=== PATIENT | male | born 1945 | race Caucasian/White ===

== ENCOUNTER → 2019-07-08 08:50 | Outpatient (CLI) | payer MEDICARE ==
[2013-01-16 09:22] VITALS: BMI 28.0
== END | disposition home or self-care (01) ==
LOC: D.CT 08:50 → D.RT 10:00
PROVIDERS: ATTEND Internal Medicine Pulmonary Disease
DX: J44.9 Chronic obstructive pulmonary disease, unspecified (principal); J84.9 Interstitial pulmonary disease, unspecified

== ENCOUNTER → 2019-07-12 09:40 | Outpatient (CLI) | payer MEDICARE ==
[2013-01-16 09:22] VITALS: BMI 28.0
[2019-07-12 10:32] LABS: CALCIUM 9.3 mg/dL (8.5-10.1); CREATININE - SERUM 1.3 mg/dL (0.6-1.3)
== END | disposition home or self-care (01) ==
LOC: D.LAB 09:40
PROVIDERS: ATTEND Internal Medicine Pulmonary Disease
DX: I50.22 Chronic systolic (congestive) heart failure (principal)

== ENCOUNTER → 2020-05-25 08:28 | Outpatient (CLI) | payer OTHER ==
[2013-01-16 09:22] VITALS: BMI 28.0
== END | disposition home or self-care (01) ==
LOC: D.HCCECHO 08:28
PROVIDERS: ATTEND Internal Medicine Cardiovascular Disease
DX: I25.10 Atherosclerotic heart disease of native coronary artery without angina pectoris (principal)

== ENCOUNTER 2021-02-07 16:06 | Inpatient (IN) | payer OTHER ==
[~2021-02-07] VITALS: Ht 188 cm; Wt 75.8 kg
[2021-02-07 17:53] LABS: HEMATOCRIT 51.8 % (42.0-54.0); MCH 30.9 pg (26.0-34.0); MCHC 32.8 g/dL (31.0-37.0); MCV 94.2 fL (80.0-100.0); MEAN PLATELET VOLUME 11.1 fL (7.4-10.4); RBC 5.5 10x6/uL (4.20-6.10); RDW 14.6 % (11.5-14.5); WBC 14.1 10x3/uL (4.8-10.8)
[2021-02-07 18:00] LABS: APTT 33.8 SECONDS (22.8-39.4); INR 1.21 (0.85-1.17); PROTIME 14.2 SECONDS (11.6-15.0)
[2021-02-07 19:09] LABS: MAGNESIUM - SERUM 2.4 mg/dL (1.8-2.4)
[2021-02-07 19:45] VITALS: BP 94/58
[2021-02-07 20:08] LABS: SARS-CoV-2 ANTIGEN NEGATIVE- SARS-COV-2 (NEGATIVE)
--- NOTE | 2021-02-07 20:45 | NUR ---
PT TRANSPORTED TO ICU AT THIS TIME. VANCOMYCIN INFUSING DURING TRANSPORT AT 250ML/HR, APPROX 200 ALREADY INFUSED UPON TRANSPORT.
[2021-02-07 21:50] VITALS: BP 109/82
[2021-02-07 22:00] VITALS: BP 104/70; BP 109/82; BMI 21.5
[2021-02-07 23:00] VITALS: BP 110/47
[2021-02-08] VITALS (14 sets, daily range): BP systolic 88–116; BP diastolic 60–75; Ht 188 cm; Wt 75.8 kg
[2021-02-08 04:39] LABS: BASOPHILS 0 % (0-2); EOSINOPHILS 0.1 % (0-7); HEMATOCRIT 47.5 % (42.0-54.0); HEMOGLOBIN 15.3 g/dL (13.5-17.5); IMMATURE GRANULOCYTES 0.3 % (0-5); LYMPHOCYTE ABS# 0.71 10x3/uL (1.32-3.57); LYMPHOCYTES 7.6 % (15-50); MCH 30.2 pg (26.0-34.0); MCHC 32.2 g/dL (31.0-37.0); MCV 93.7 fL (80.0-100.0); MEAN PLATELET VOLUME 11.2 fL (7.4-10.4); MONOCYTES 1.2 % (2-11); NEUTROPHIL ABS# 8.54 10x3/uL (1.78-5.38); NEUTROPHILS 90.8 % (40-80); PLATELET COUNT 292 10x3/uL (130-400); RBC 5.07 10x6/uL (4.20-6.10); RDW 14.5 % (11.5-14.5)
[2021-02-08 04:54] LABS: WBC 9.4 10x3/uL (4.8-10.8)
[2021-02-08 05:00] LABS: ALBUMIN 2.9 g/dL (3.4-5.0); ANION GAP 13.8 mmol/L (8-16); BILIRUBIN - TOTAL 0.62 mg/dL (0.2-1.3); CREATININE - SERUM 1.3 mg/dL (0.6-1.3); MAGNESIUM - SERUM 2.2 mg/dL (1.8-2.4); POTASSIUM - SERUM 4.8 mmol/L (3.5-5.1); PROTEIN - SERUM 7.1 g/dL (6.4-8.2)
[2021-02-08 07:50] LABS: SARS-CoV-2 ANTIGEN NEGATIVE- SARS-COV-2 (NEGATIVE)
--- NOTE | 2021-02-08 10:48 | NUR ---
REPORT CALLED TO ILEANA GOMEZ. PT TRANSFERRED TO 2117 VIA W/C WITH ALL PT BELONGINGS. PT STABLE WITH EQUAL NON LABORED RR. PT DENIES ANY FURTHER QUESTIONS OR COMPLAINTS.
--- NOTE | 2021-02-08 11:15 | NUR ---
PT TO ROOM FROM ICU VIA WHEELCHAIR WITH FAMILY IN ROOM. 2LNC IN USE. NO COMPLAINTS AT PRESENT.
[2021-02-08 11:26] LABS: BILIRUBIN NEGATIVE (NEGATIVE); KETONE NEGATIVE (NEGATIVE); NITRITE NEGATIVE (NEGATIVE); UROBILINOGEN NORMAL mg/dL (< 2)
[2021-02-08] MEDS ORDERED: ENTRESTO 24 MG1 EACH PO (14:35)
[2021-02-08] MEDS ORDERED: COREG 3.1253.125 MG PO (14:35)
[2021-02-08] MEDS ORDERED: XANAX0.25 MG PO (14:36)
[2021-02-08] MEDS ORDERED: BAYER CHEWABLE81 MG PO (14:37)
[2021-02-09 05:33] VITALS: BP 91/61
[2021-02-09 06:16] LABS: ALBUMIN 2.9 g/dL (3.4-5.0); BILIRUBIN - TOTAL 0.35 mg/dL (0.2-1.3); CALCIUM 9.3 mg/dL (8.5-10.1); CARBON DIOXIDE 28.9 mmol/L (21.0-32.0); CREATININE - SERUM 1.1 mg/dL (0.6-1.3); MAGNESIUM - SERUM 2.3 mg/dL (1.8-2.4); PROTEIN - SERUM 6.8 g/dL (6.4-8.2)
[2021-02-09 06:17] LABS: POTASSIUM - SERUM 3.9 mmol/L (3.5-5.1)
[2021-02-09 06:26] LABS: BASOPHILS 0 % (0-2); EOSINOPHILS 0 % (0-7); HEMATOCRIT 45.5 % (42.0-54.0); HEMOGLOBIN 14.7 g/dL (13.5-17.5); IMMATURE GRANULOCYTES 0.3 % (0-5); LYMPHOCYTE ABS# 0.51 10x3/uL (1.32-3.57); LYMPHOCYTES 3.1 % (15-50); MCH 30.3 pg (26.0-34.0); MCHC 32.3 g/dL (31.0-37.0); MCV 93.8 fL (80.0-100.0); MEAN PLATELET VOLUME 11.6 fL (7.4-10.4); MONOCYTES 4.3 % (2-11); NEUTROPHIL ABS# 15.09 10x3/uL (1.78-5.38); NEUTROPHILS 92.3 % (40-80); PLATELET COUNT 294 10x3/uL (130-400); RBC 4.85 10x6/uL (4.20-6.10); RDW 14.4 % (11.5-14.5)
[2021-02-09 06:32] LABS: WBC 16.4 10x3/uL (4.8-10.8)
[2021-02-09 06:49] VITALS: BP 90/59
--- NOTE | 2021-02-09 08:40 | NUR ---
PT LEFT UNIT FOR PROCEDURE ACCOMPANIED BY HOSPITAL STAFF
[2021-02-09 11:08] VITALS: BP 97/65
--- NOTE | 2021-02-09 13:41 | NUR ---
Nutrition Reassessment/Follow-up: Transferred from ICU to floor. Normal gastrograffin & ST eval yesterday. NPO this AM for laryngoscopy, bronchoscopy, esophagoscopy. Diet: Cardiac PO intake: 75% lunch & 100% dinner yesterday Wt: 167# (02/08) Labs noted: Glu 132, Alb 2.9 Meds noted: Solumedrol, Protonix, LS @ KVO, electrolyte protocol Nutrition Goals: -Diet will advance to low sodium as tolerated within 24-48 hrs. -Meet est fluid needs without overload -Stable dry wt with increase to UBW -Glu wnl Nutrition Intervention: -Nutrition needs unchanged since initial assessment; no new wt available. -Resume cardiac diet when medically feasible. -Monitor Glu. -Need new wt. -RD follow-up: 02/13
--- NOTE | 2021-02-09 14:19 | NUR ---
I have reviewed this patient and I concur with the Shift Assessment completed by the Licensed Practical Nurse today this shift.
[2021-02-09 15:26] VITALS: BP 88/57
--- NOTE | 2021-02-09 19:30 | NUR ---
INITIAL ROUNDS AND ASSESSMENT COMPLETED. PT ALERT/ORIENTED AND RESTING IN BED. O2 @ 2L/NC WITH NONLABORED RESPIRATIONS. SR PER TELEMETRY. HAS PACEMAKER/DEFIBRILLATOR. PIV SALINE LOCKED IN LEFT A/C. DENIES PAIN OR DISCOMFORT. PLAN OF CARE REVIEWED.
[2021-02-09 20:41] VITALS: BP 91/60
--- NOTE | 2021-02-09 22:21 | NUR ---
PROVIDED PANKAJ BRYAN FOR PT. NO OTHER NEEDS.
[2021-02-10 00:19] VITALS: BP 104/64
--- NOTE | 2021-02-10 01:38 | NUR ---
IV SOLUMEDROL GIVEN, IV ABT UP AND INFUSING. HEPARIN 5000 UNITS GIVEN SC IN ABDOMEN. PT ALERT/ORIENTED. NO NEEDS VOICED. CALL LIGHT IN REACH.
[2021-02-10 03:48] VITALS: BP 106/57
[2021-02-10 06:10] LABS: BASOPHILS 0 % (0-2); EOSINOPHILS 0 % (0-7); HEMATOCRIT 44.8 % (42.0-54.0); HEMOGLOBIN 14.6 g/dL (13.5-17.5); IMMATURE GRANULOCYTES 0.2 % (0-5); LYMPHOCYTE ABS# 0.25 10x3/uL (1.32-3.57); LYMPHOCYTES 1.8 % (15-50); MCHC 32.6 g/dL (31.0-37.0); MCV 95.1 fL (80.0-100.0); MEAN PLATELET VOLUME 11.7 fL (7.4-10.4); MONOCYTES 4.1 % (2-11); NEUTROPHILS 93.9 % (40-80); PLATELET COUNT 256 10x3/uL (130-400); RBC 4.71 10x6/uL (4.20-6.10); RDW 14.8 % (11.5-14.5); WBC 14.3 10x3/uL (4.8-10.8)
[2021-02-10 06:19] LABS: ALBUMIN 2.8 g/dL (3.4-5.0); ANION GAP 10.2 mmol/L (8-16); BILIRUBIN - TOTAL 0.29 mg/dL (0.2-1.3); CALCIUM 9.1 mg/dL (8.5-10.1); CREATININE - SERUM 1.1 mg/dL (0.6-1.3); MAGNESIUM - SERUM 2.3 mg/dL (1.8-2.4); POTASSIUM - SERUM 4.2 mmol/L (3.5-5.1); PROTEIN - SERUM 6.3 g/dL (6.4-8.2)
--- NOTE | 2021-02-10 07:00 | NUR ---
RECEIVED REPORT. ASSUMED CARE OF PATIENT. CALL LIGHT WITHIN REACH. PATIENT RESTING WITH EYES OPEN, ATTENTION TOWARD TELEVISON. WHITE BOARD UPDATED, BEDSIDE SHIFT REPORT COMPLETE. NO DISTRESS.
--- NOTE | 2021-02-10 07:40 | NUR ---
COFFEE PROVIDED UPON REQUEST. NO DISTRESS.
[2021-02-10 07:47] VITALS: BP 93/60
[2021-02-10 11:20] VITALS: BP 101/43
[2021-02-10 15:24] VITALS: BP 92/62
--- NOTE | 2021-02-10 18:11 | NUR ---
20 GAUGE IV REMOVED FROM LEFT AC IV WILL NOT FLUSH AND FLUID LEAKING FROM IV SITE. CATHETER TIP INTACT. NO BLEEDING FROM SITE. 2X2 GAUZE APPLIED AND SECURED WITH TAPE. 22 GAUGE IV PLACED TO LEFT FOREARM X 1 STICK, GOOD BLOOD RETURN, EASY FLUSH. TAPED, DATED, AND SECURED. PATIENT TOLERATED IV PLACEMENT WELL. IV ABX INFUSING ORDERED AT THIS TIME. NO DISTRESS.
--- NOTE | 2021-02-10 20:00 | NUR ---
INITIAL ROUNDS AND ASSESSMENT COMPLETED. PT ALERT/ORIENTED AND RESTING IN BED. IV LR AT KVO INFUSING TO LFA. SCDS IN PLACED. O2 @ 2L/NC WITH NONLABORED RESPIRATIONS. CALL LIGHT IN REACH.
[2021-02-10 21:04] VITALS: BP 195/71
[2021-02-11 01:57] VITALS: BP 114/71
[2021-02-11 06:03] LABS: BASOPHILS 0 % (0-2); EOSINOPHILS 0 % (0-7); HEMATOCRIT 43.7 % (42.0-54.0); IMMATURE GRANULOCYTES 0.3 % (0-5); LYMPHOCYTE ABS# 0.22 10x3/uL (1.32-3.57); MCH 30.3 pg (26.0-34.0); MCV 94.6 fL (80.0-100.0); MEAN PLATELET VOLUME 11.4 fL (7.4-10.4); MONOCYTES 4.2 % (2-11); NEUTROPHIL ABS# 10.47 10x3/uL (1.78-5.38); NEUTROPHILS 93.5 % (40-80); PLATELET COUNT 241 10x3/uL (130-400); RBC 4.62 10x6/uL (4.20-6.10); RDW 14.6 % (11.5-14.5); WBC 11.2 10x3/uL (4.8-10.8)
[2021-02-11 06:10] VITALS: BP 111/75
[2021-02-11 06:31] LABS: ALBUMIN 2.8 g/dL (3.4-5.0); ALKALINE PHOSPHATASE 72 U/L (30-120); ALT (SGPT) 27 U/L (10-68); CALC OSMOLALITY 281 mosm/kg (275-300); CARBON DIOXIDE 28.4 mmol/L (21.0-32.0); CHLORIDE - SERUM 103 mmol/L (98-107); GLUCOSE 115 mg/dL (74-106); MAGNESIUM - SERUM 2.3 mg/dL (1.8-2.4); POTASSIUM - SERUM 4.3 mmol/L (3.5-5.1); PROTEIN - SERUM 6.2 g/dL (6.4-8.2); SODIUM 139 mmol/L (136-145); UREA NITROGEN 21 mg/dL (7-18); eGFR NON AFRICAN AMERICAN 78 mL/min (90-120)
--- NOTE | 2021-02-11 07:00 | NUR ---
RECIEVED REPORT. ASSUMED CARE OF PATIENT. CALL LIGHT WITHIN REACH. PATIENT LYING IN BED WITH ATTENTION TOWARD TELEVISION. RESP EVEN AND UNLABORED. WHITE BOARD UPDATED, BEDSIDE SHIFT REPORT COMPLETE. CLEANED OFF BEDSIDE TABLE OF FRUIT, PATIENT GETTING READY FOR AM MEAL. NO DISTRESS.
[2021-02-11 07:36] VITALS: BP 125/75
--- NOTE | 2021-02-11 10:24 | NUR ---
OOB AMBULATING WITH WALKER WITH PHYSICAL THERAPY AT THIS TIME. NO DISTRESS.
[2021-02-11 11:20] VITALS: BP 101/69
[2021-02-11 16:12] VITALS: BP 107/70
--- NOTE | 2021-02-11 16:52 | NUR ---
RESTING IN BED WITH EYES OPEN, NO DISTRESS. CALL LIGHT WITHIN REACH. ABLE TO CAT NAP THIS AFTERNOON AFTER NOT SLEEPING LAST PM. CALL LIGHT WITHIN REACH.
--- NOTE | 2021-02-11 20:19 | NUR ---
INITIAL ROUNDS AND ASSESSMENT COMPLETED. NO DISTRESS. RESTING IN BED. CALL LIGHT IN REACH.
--- NOTE | 2021-02-11 23:46 | NUR ---
BEDTIME IV ABT GIVEN. IVF INFUSING. UP AND DOWN TO BEDSIDE CHAIR. WITH ANY EXERTION HE WILL HAVE SHORT RUNS OF VTACH THAT STOP SOON HE HAS SETTLED BACK AND IS RESTING. DENIES PAIN, STATES IT DOES MAKE HIM MILDLY SHORT OF BREATH. CALL LIGHT IN REACH.
--- NOTE | 2021-02-12 05:49 | NUR ---
PT HAS RESTED THROUGH THE NIGHT WITH NO DISTRESS. ALL MEDICATIONS RECIEVED. IVF LR @ 30ML/HR INFUSING. O2 @ 2L/NC. CURRENTLY PORTABLE CXR BEING DONE. CALL LIGHT IN REACH.
--- NOTE | 2021-02-12 07:00 | NUR ---
RECIEVED REPORT. ASSUMED CARE OF PATIENT. PATIENT RESTING WELL IN BED WITH EYES OPEN. NO DISTRESS. WHITE BOARD UPDATED, BEDSIDE SHIFT REPORT COMPLETE. NO DISTRESS.
[2021-02-12 07:06] LABS: BASOPHILS 0 % (0-2); EOSINOPHILS 0 % (0-7); HEMATOCRIT 43.5 % (42.0-54.0); HEMOGLOBIN 14.1 g/dL (13.5-17.5); IMMATURE GRANULOCYTES 0.6 % (0-5); LYMPHOCYTES 2.8 % (15-50); MCH 30.9 pg (26.0-34.0); MCHC 32.4 g/dL (31.0-37.0); MCV 95.2 fL (80.0-100.0); MEAN PLATELET VOLUME 11.5 fL (7.4-10.4); MONOCYTES 6.8 % (2-11); NEUTROPHIL ABS# 9.62 10x3/uL (1.78-5.38); NEUTROPHILS 89.8 % (40-80); PLATELET COUNT 230 10x3/uL (130-400); RBC 4.57 10x6/uL (4.20-6.10); RDW 14.9 % (11.5-14.5); WBC 10.7 10x3/uL (4.8-10.8)
[2021-02-12 07:19] LABS: ALBUMIN 2.7 g/dL (3.4-5.0); ANION GAP 8.8 mmol/L (8-16); BILIRUBIN - TOTAL 0.32 mg/dL (0.2-1.3); CALCIUM 9.1 mg/dL (8.5-10.1); CARBON DIOXIDE 31.5 mmol/L (21.0-32.0); CREATININE - SERUM 1.1 mg/dL (0.6-1.3); MAGNESIUM - SERUM 2.3 mg/dL (1.8-2.4); POTASSIUM - SERUM 4.3 mmol/L (3.5-5.1)
--- NOTE | 2021-02-12 10:04 | CN ---
PATIENT NAME:TESSIE STOLL MEDICAL RECORD: [id number] : 49 LOCATION:D. D.2118 ADMIT DATE: 02/07/21 ACCOUNT: [id number] CONSULTING PHYSICIAN: LIBRA ROBERTS MD REFERRING PHYSICIAN: ROLF TAFOYA MD DATE OF CONSULTATION: 02/09/2021 HISTORY OF PRESENT ILLNESS: Mr. Stoll is a 75-year-old male recently hospitalized with shortness of breath. He was seen by Dr. Mcguire, Cardiothoracic Surgery, and felt like he needed endoscopy for evaluation. He has a history of congestive heart failure, pulmonary disease. He came in with shortness of breath, fatigue. This has been developing over the past 3 weeks. He has lost his appetite. He feels short of breath, just not feeling well. Reportedly, has not had any cough, has not been sick. No hemoptysis. No voice change. No dysphagia. He has been eating less based on no appetite. Has not been vomiting or retching. No injury. Nothing else remarkable in his history. He was found to have a pneumomediastinum. He had a Gastrografin swallow, which was negative. He had a CT of the chest, which shows air mainly in the mediastinum, but no lesions identified. His white count is 16,000, but he has not had any fever. He has not had any GI bleed. He is not having any chest pain or other symptoms really. Dr. Mcguire consults may want to me to do triple endoscopy, laryngoscopy, bronchoscopy, esophagoscopy. PHYSICAL EXAMINATION: GENERAL: He is healthy appearing. He is supine in the hospital bed, but he is a good historian. Perfectly normal voice. Good historian and no distress. HEENT: His face normal, symmetric, no lesions. Eyes, sclerae and conjunctivae are normal. Ears are normal. The nose, no mass, polyps, or drainage. Oral cavity, oropharynx is normal. He does not have any trismus. NECK: No masses. No adenopathy. He has got a relatively long, thin neck, easy to examine. No supraclavicular adenopathy. No tenderness. All the landmarks of the larynx are normal. No subcutaneous air. Crepitus is palpable. DIAGNOSTIC DATA: CT of the chest, I reviewed with the radiologist. Trachea and esophagus look normal. There is air, some adenopathy in mediastinum. Apparently, that is not new according to the garage worker. IMPRESSION: Pneumomediastinum with progressive shortness of breath. No obvious etiology. PLAN: Laryngoscopy, bronchoscopy, esophagoscopy, possible biopsies for evaluation. Try to do that with as much spontaneous ventilation and no positive pressure ventilation as we can and evaluate him. TRANSINT:[id number] Voice Confirmation ID: [id number] DOCUMENT ID: [id number] LIBRA ROBERTS MD at 1004 CC: [id number] DICTATION DATE: 02/09/21 0804 ONLINE MARKETING ANALYST: 02/09/21 1020 ADM IN [facility] [address] [id number]
--- NOTE | 2021-02-12 10:04 | OP ---
PATIENT NAME: TESSIE STOLL MEDICAL RECORD: [id number] :49 LOCATION:D. D.2118 ADMISSION DATE:02/07/21 SURGEON: TAE HADLEY MD DATE OF OPERATION: 02/09/2021 PREOPERATIVE DIAGNOSIS: Pneumomediastinum. POSTOPERATIVE DIAGNOSIS: Pneumomediastinum. PROCEDURE: Direct laryngoscopy, rigid esophagoscopy, rigid flexible bronchoscopy. SURGEON: Tae Hadley MD ANESTHESIA: General orotracheal. BLOOD LOSS: Zero. SPECIMENS: Cytology from bronchial washings. COMPLICATIONS: None. DISPOSITION: Recovery, stable. FINDINGS: Laryngoscopy, bronchoscopy and esophagoscopy were all negative. DESCRIPTION OF PROCEDURE: The patient was brought to the operating room, placed in supine position, sedated, intubated with a 6 ET tube by anesthesia. He was able to be spontaneously ventilating the entire time without positive pressure ventilation. A 6 ET tube was taped in the left side of the mouth. The table was turned 90 degrees and he was examined. The neck was again palpated carefully. A thin, easy to examine neck. No masses, no adenopathy. Laryngeal framework. All normal to palpation. All landmarks were normal. No palpable crepitance. Using headlight, mouth was opened, oral cavity and oropharynx were examined. All normal. A plastic upper tooth guard was used to protect his teeth. He did not have posterior teeth. Good neck flexibility. A Kleinsasser J laryngoscope was used to examine the hypopharynx, the vallecula, base of tongue, lateral pharyngeal agee, piriform postcricoid area and the larynx. Posterior pharyngeal wall were all perfectly normal. It was thin, easy to examine. There were no masses, inflammation, no friable areas. Everything looked perfectly normal. Then, the laryngoscope was removed. Then, a 30 cm cervical esophagoscope was inserted easily. The esophageal inlet was normal. Passed this down to the mid esophagus easily, perfectly normal suction, little bit of secretions, but again no masses, no mucosal lesions. No true evidence of any injury or ecchymosis or any changes anywhere. The 30 cm esophagoscope was removed and then full length esophagoscope was inserted again easily to the mid distal esophagus, passed that down easily to about 42-45 cm at the incisors near the gastroesophageal junction. No abnormalities were seen. Did not pass into the stomach. I then backed out slowly. The entire esophagus appeared normal. Once the esophagoscope was removed, then the 7-2 rigid bronchoscope was used. The cuff was let down on the ET tube. Rigid bronchoscope was inserted, easily passed through the cords, examine the cords, postcricoid area, the posterior glottic area and then the subglottis and undersurface of the cords, anterior commissure carefully inspected. No abnormalities, erythema, lesions, or evidence of injury at all. Passed this through the entire trachea, down to the OPERATIVE REPORT [id number] TESSIE STOLL lindy, right and left main stem bronchi were visualized, again everything perfectly normal. No secretions. Nothing friable. Nothing to suction. Looked completely clean and normal. The rigid bronchoscope was removed. Then, he was intubated with a 8 ET tube. Cuff was inflated and a flexible bronchoscopy was performed. This was passed down through the trachea. Again, it was carefully examined. The agee, right and left main stem and bronchial tree were inspected bilaterally. No lesions, masses, inflammation, granulation or secretions at all. Everything looked perfectly normal. At the completion of the examination then both the right and left side were irrigated with saline. This was suctioned up for bronchial washing specimen even though no lesions were seen and then backed out the ET tube and then carefully pulled out the bronchoscope so I could examine the subglottic area and upper trachea carefully with the scope, better angles and magnification, and the rigid scope everything completely clean. He was repositioned. The plastic tooth guard was removed, completely negative findings. Anesthesiologist was able to let him just continue to breathe spontaneously until he awoke and took him to the recovery room. TRANSINT:[id number] Voice Confirmation ID: [id number] DOCUMENT ID: [id number] TAE HADLEY MD at 1004 CC: [id number] DICTATION DATE: 02/09/21 1057 WASHCOAT WIPER: 02/09/21 1320 ADM IN [id number] [place] [address]
--- NOTE | 2021-02-12 10:43 | NUR ---
GT BELT, O2 AT 2, PATIENT MIN ASST TO GET UP TO BEDSIDE AND TO STAND. PATIENT WALKED IN [place] 250 FEET USING WALKER WITH MIN-CGA.
--- NOTE | 2021-02-12 14:55 | MORECARE ---
CASE MANAGEMENT DISCHARGE SUMMARY PATIENT: TESSIE TSOLL UNIT: [id number] ADM DATE: 02/07/21 AGE: 75 : 47 SEX: M ROOM/BED: D.2118 AUTHOR: BRANNON US PHYSICIAN: REFERRING PHYSICIAN: ROLF TAFOYA MD DATE OF SERVICE: 02/12/21 Case Management Discharge Planning Summary COMMENTS ENTERED DATE: 02/11/21 18:14 CT COMMENT TYPE: Discharge Planning REVIEWER: Ba Hardy met with patient to complete DC plan and to evaluate needs. Patient lives independently with family and lists his daughter, Tiffanie Stoll, , as his person to notify. Patient stated that his home is safe and has electricity and running water. Patient stated that he has no problems paying for medications and he fills his medications at [facility] in Pharmacy in [place]. Patient stated that his primary care physician is an DYE BOX OPERATOR in [place], Kenia Campa (cannot locate DYE BOX OPERATOR via internet). At discharge, the patient plans to return home and feels this is a safe discharge. CM discussed availability of home health, rehab services, and medical equipment. Patient declined HHS, SNF, IPR, and DME. Patient stated that he has oxygen through [facility]. CM encouraged patient to consider the benefits of strengthening before going home. Patient again declined IPR. CM encouraged patient to follow up with his PCP to coordinate HHS or IPR should he change his mind once he is home. Patient voiced no other needs at this time and is satisfied with DC plan. Transportation provider at discharge will be with his daughter, Tiffanie. CM will continue to follow and will assist as needed with dc plans/needs. DCP REVIEW SUMMARY ANTICIPATED D/C DATE: EXPECTED LOS : CASE STATUS: DCP Initiated INITIAL REVIEW: 02/07/2021 INITIAL REVIEWER: Ba Flower FINAL DISCHARGE DISPOSITION: : FINAL REVIEWER: FINAL REVIEW DATE: DCP Focus Questions & Answers DCP Evaluation QUESTION: ANSWER Patient and/or caregiver agree upon recommended discharge plan? : Yes Family / Caregiver's ability to cope with chronic illness: : a. Adequate (ability to meet patient's medical needs, ensures patient attends medical appts.) Patient's current cognitive status: : *Oriented to person, place, situation, time and present Patient's ability to cope with chronic illness : d. No chronic illness Patient gives permission to discuss discharge plans with: (name, relationship and number) : daughter, Tiffanie Stoll, Does the patient have the ability to pay for or attain post discharge needs / services? : Yes Functional screen assessment: : Basic needs can adequately be met by self Family / Caregiver's ability to cope with chronic illness: : a. Adequate (ability to meet patient's medical needs, ensures patient attends medical appts.) Physical Status: : Independent with ADL's Equipment needed for post hospitalization: : None Is there a likelihood that the patient will require additional services to return to the preadmission environment? : No Living Arrangements: : Home with Extended Family Patient with capacity for self-care or can be cared for in same environment as prior to hospitalization? : Yes Baseline cognitive status: : *Oriented to person, place, situation, time and present Physical environment modification needed / anticipated for discharge: : No Medication Management: : Patient states can read and understand medication labels Medication Management: : Patient states can afford medications Pharmacy name(s): : [facility] in [facility] Does Patient have transportation to get home and to follow-up medical appointments when discharged from the hospital? : Yes Would patient like to participate in any Care Coordination programs (if applicable): : Not applicable Does the patient have electricity at home? : Yes Does the patient have running water in their house? : Yes Equipment in use: : Other Other Equipment comments: : OXYGEN Equipment agency name and contact information: : [facility] screen: : No mental health history DCP Re-evaluation QUESTION: ANSWER Would patient like to participate in any Care Coordination programs (if applicable): : Not applicable PATIENT: TESSIE STOLL ENCOUNTER: [id number] MEDICAL RECORD#: [id number] ADMISSION DATE: 02/07/2021 DISCHARGE DATE: ATTENDING MD: MICHELET TAFOYA : AGE: 75 MARITAL STATUS: W DC PLAN ID: [id number] FACILITY: [facility] PRINTED ON: 02/12/21 14:55 CT All edits/amendments must be made on the electronic document DICTATION DATE: 02/12/211454 OXYGEN PLANT OPERATOR: STEVENSON 02/12/211454 RPT#: [id number] DC DATE: STATUS: ADM IN [facility] [address] [place] [address] END OF REPORT
--- NOTE | 2021-02-12 20:12 | NUR ---
RECIEVED LAYIG IN BED WITH EYES CLOSED. EASILY AROUSED WITH VERBAL STIMULI. O2 @ 2 LITERS PER N/C. IV TO LT FA WITH LR @ 30CC/HR. TELEMETRY IN PLACE. DENIES ANY NEEDS AT THIS TIME.
[2021-02-13 06:11] LABS: BASOPHILS 0.2 % (0-2); EOSINOPHILS 0 % (0-7); HEMATOCRIT 44.3 % (42.0-54.0); HEMOGLOBIN 14.1 g/dL (13.5-17.5); IMMATURE GRANULOCYTES 0.8 % (0-5); LYMPHOCYTE ABS# 0.44 10x3/uL (1.32-3.57); LYMPHOCYTES 3.3 % (15-50); MCH 30.6 pg (26.0-34.0); MCHC 31.8 g/dL (31.0-37.0); MCV 96.1 fL (80.0-100.0); MEAN PLATELET VOLUME 11.2 fL (7.4-10.4); MONOCYTES 8.4 % (2-11); NEUTROPHIL ABS# 11.47 10x3/uL (1.78-5.38); NEUTROPHILS 87.3 % (40-80); PLATELET COUNT 246 10x3/uL (130-400); RBC 4.61 10x6/uL (4.20-6.10); RDW 14.9 % (11.5-14.5); WBC 13.1 10x3/uL (4.8-10.8)
[2021-02-13 06:39] LABS: ALBUMIN 2.7 g/dL (3.4-5.0); ANION GAP 8.5 mmol/L (8-16); BILIRUBIN - TOTAL 0.31 mg/dL (0.2-1.3); CALCIUM 9.2 mg/dL (8.5-10.1); CARBON DIOXIDE 30.9 mmol/L (21.0-32.0); CREATININE - SERUM 1.2 mg/dL (0.6-1.3); POTASSIUM - SERUM 4.4 mmol/L (3.5-5.1); PROTEIN - SERUM 6.1 g/dL (6.4-8.2)
--- NOTE | 2021-02-13 07:20 | NUR ---
RECIEVE REPORT. RESTING IN BED WITH EYES CLOSED. NO SIGNS OF DISTRESS. CONTINUE PLAN OF CARE AND SAFETY PRECAUTIONS.
--- NOTE | 2021-02-13 08:15 | MORECARE ---
CASE MANAGEMENT DISCHARGE SUMMARY PATIENT: TESSIE STOLL UNIT: [id number] ADM DATE: 02/07/21 AGE: 75 : 47 SEX: M ROOM/BED: D.2118 AUTHOR: BRANNON US PHYSICIAN: REFERRING PHYSICIAN: ROLF TAFOYA MD DATE OF SERVICE: 02/13/21 Case Management Discharge Planning Summary COMMENTS ENTERED DATE: 02/11/21 18:14 CT COMMENT TYPE: Discharge Planning REVIEWER: Ba Hardy met with patient to complete DC plan and to evaluate needs. Patient lives independently with family and lists his daughter, Tiffanie Stoll, , as his person to notify. Patient stated that his home is safe and has electricity and running water. Patient stated that he has no problems paying for medications and he fills his medications at [facility] in Pharmacy in [place]. Patient stated that his primary care physician is an FLEXOGRAPHIC PRINTING MACHINIST in [place], Kenia Campa (cannot locate FLEXOGRAPHIC PRINTING MACHINIST via internet). At discharge, the patient plans to return home and feels this is a safe discharge. CM discussed availability of home health, rehab services, and medical equipment. Patient declined HHS, SNF, IPR, and DME. Patient stated that he has oxygen through [facility]. CM encouraged patient to consider the benefits of strengthening before going home. Patient again declined IPR. CM encouraged patient to follow up with his PCP to coordinate HHS or IPR should he change his mind once he is home. Patient voiced no other needs at this time and is satisfied with DC plan. Transportation provider at discharge will be with his daughter, Tiffanie. CM will continue to follow and will assist as needed with dc plans/needs. DCP REVIEW SUMMARY ANTICIPATED D/C DATE: EXPECTED LOS : CASE STATUS: DCP Initiated INITIAL REVIEW: 02/07/2021 INITIAL REVIEWER: Ba Flower FINAL DISCHARGE DISPOSITION: : FINAL REVIEWER: FINAL REVIEW DATE: DCP Focus Questions & Answers DCP Evaluation QUESTION: ANSWER Patient and/or caregiver agree upon recommended discharge plan? : Yes Family / Caregiver's ability to cope with chronic illness: : a. Adequate (ability to meet patient's medical needs, ensures patient attends medical appts.) Patient's current cognitive status: : *Oriented to person, place, situation, time and present Patient's ability to cope with chronic illness : d. No chronic illness Patient gives permission to discuss discharge plans with: (name, relationship and number) : daughter, Tiffanie Stoll, Does the patient have the ability to pay for or attain post discharge needs / services? : Yes Functional screen assessment: : Basic needs can adequately be met by self Family / Caregiver's ability to cope with chronic illness: : a. Adequate (ability to meet patient's medical needs, ensures patient attends medical appts.) Physical Status: : Independent with ADL's Equipment needed for post hospitalization: : None Is there a likelihood that the patient will require additional services to return to the preadmission environment? : No Living Arrangements: : Home with Extended Family Patient with capacity for self-care or can be cared for in same environment as prior to hospitalization? : Yes Baseline cognitive status: : *Oriented to person, place, situation, time and present Physical environment modification needed / anticipated for discharge: : No Medication Management: : Patient states can read and understand medication labels Medication Management: : Patient states can afford medications Pharmacy name(s): : [facility] in [facility] Does Patient have transportation to get home and to follow-up medical appointments when discharged from the hospital? : Yes Would patient like to participate in any Care Coordination programs (if applicable): : Not applicable Does the patient have electricity at home? : Yes Does the patient have running water in their house? : Yes Equipment in use: : Other Other Equipment comments: : OXYGEN Equipment agency name and contact information: : [facility] screen: : No mental health history DCP Re-evaluation QUESTION: ANSWER Would patient like to participate in any Care Coordination programs (if applicable): : Not applicable PATIENT: TESSIE STOLL ENCOUNTER: [id number] MEDICAL RECORD#: [id number] ADMISSION DATE: 02/07/2021 DISCHARGE DATE: ATTENDING MD: MICHELET TAFOYA : AGE: 75 MARITAL STATUS: W DC PLAN ID: [id number] FACILITY: [facility] PRINTED ON: 02/13/21 8:14 CT All edits/amendments must be made on the electronic document DICTATION DATE: 02/13/21813 FURNITURE DELIVERY DRIVER: STEVENSON 02/13/21813 RPT#: [id number] DC DATE: STATUS: ADM IN [facility] [address] [place] [address] END OF REPORT
[2021-02-13 11:37] VITALS: BP 117/73
[2021-02-13] MEDS ORDERED: PROTONIX40 MG PO (11:40)
[2021-02-13] MEDS ORDERED: IPRAT-ALBUT 0.5-3 ML INH ×2 (11:43)
[2021-02-13] MEDS ORDERED: PULMICORT0.5 MG/21 INH (11:44)
[2021-02-13] MEDS ORDERED: PREDNISONE10 MG PO (11:44)
--- NOTE | 2021-02-13 12:56 | NUR ---
Nutrition Follow-up: Eating well. Denies N/V/C/D, chewing/swallowing difficulties. Diet: Cardiac PO intake: 100% x last 4 meals No new wt; last wt: 167# (02/08) Last BM: 02/13 Labs noted: Alb 2.7 Meds noted: Prednisone, Protonix, LR @ KVO, electrolyte protocol -RD will follow up within 7 days if pt still admitted.
--- NOTE | 2021-02-13 14:00 | NUR ---
REFUSED PT AWAITING DC
--- NOTE | 2021-02-13 15:30 | NUR ---
ALERT AND ORIENTED X4. DC LT FA IV TIP INTACT. DISCHARGE INSTRUCTIONS GIVEN VERBALLY AND WRITTEN. WAITING FOR RIDE. DISCHARGE PAPERS SIGNED ON CHART.
--- NOTE | 2021-02-13 17:07 | NUR ---
RIDE ARRIVES. ESCORT OUT VIA WHEELCHAIR. PORTABLE OXYGEN IN USE. REMAINS FREE FROM INJURY.
== END 2021-02-13 17:08 | disposition home or self-care (01) | DRG 199 ==
LOC: D.ER 16:06 → D.ICU 17:15 → D.M2 17:15 → D.ICU 21:15 → D.M2 02-08 10:49
PROVIDERS: Emergency Medicine; Otolaryngology; ADMIT Family Medicine; ATTEND Family Medicine
PROC: 0B938ZZ Drainage of Right Main Bronchus, Via Natural or Artificial Opening Endoscopic (ICD-10-PCS; 2021-02-09)
PROC: 0CJS8ZZ Inspection of Larynx, Via Natural or Artificial Opening Endoscopic (ICD-10-PCS; principal; 2021-02-09 08:00)
PROC: 0DJ08ZZ Inspection of Upper Intestinal Tract, Via Natural or Artificial Opening Endoscopic (ICD-10-PCS; 2021-02-09 08:00)
PROC: 0B978ZZ Drainage of Left Main Bronchus, Via Natural or Artificial Opening Endoscopic (ICD-10-PCS; 2021-02-09 08:00)
DX: J98.2 Interstitial emphysema (principal); I21.A1 Myocardial infarction type 2; J96.11 Chronic respiratory failure with hypoxia; E87.1 Hypo-osmolality and hyponatremia; I50.22 Chronic systolic (congestive) heart failure; I13.0 Hypertensive heart and chronic kidney disease with heart failure and stage 1 through stage 4 chronic kidney disease, or unspecified chronic kidney disease; J44.9 Chronic obstructive pulmonary disease, unspecified; E78.5 Hyperlipidemia, unspecified; I25.5 Ischemic cardiomyopathy; N18.9 Chronic kidney disease, unspecified; Z95.0 Presence of cardiac pacemaker; Z87.891 Personal history of nicotine dependence

== ENCOUNTER 2021-02-14 04:33 | Inpatient (IN) | payer OTHER ==
[2021-02-14] VITALS (59 sets, daily range): BP systolic 74–105; BP diastolic 46–75; BMI 24.5
[~2021-02-14] VITALS: Ht 188 cm; Wt 78.3 kg
[~2021-02-14 04:33] MED LIST: BAYER CHEWABLE81 MG PO; COREG 3.1253.125 MG PO; ENTRESTO 24 MG1 EACH PO; IPRAT-ALBUT 0.5-3 ML INH; PREDNISONE10 MG PO; PROTONIX40 MG PO; PULMICORT0.5 MG/21 INH; XANAX0.25 MG PO
[2021-02-14 05:43] LABS: HEMATOCRIT 51.1 % (42.0-54.0); HEMOGLOBIN 16.7 g/dL (13.5-17.5); MCH 31.4 pg (26.0-34.0); MCHC 32.7 g/dL (31.0-37.0); MCV 96.1 fL (80.0-100.0); MEAN PLATELET VOLUME 10.6 fL (7.4-10.4); PLATELET COUNT 244 10x3/uL (130-400); RBC 5.32 10x6/uL (4.20-6.10); RDW 15.3 % (11.5-14.5)
[2021-02-14 05:46] LABS: WBC 56.2 10x3/uL (4.8-10.8)
[2021-02-14 06:00] LABS: CALCIUM 8.9 mg/dL (8.5-10.1); CARBON DIOXIDE 26.4 mmol/L (21.0-32.0); CHLORIDE - SERUM 106 mmol/L (98-107); GLUCOSE 113 mg/dL (74-106); POTASSIUM - SERUM 4.3 mmol/L (3.5-5.1); SODIUM 142 mmol/L (136-145); eGFR NON AFRICAN AMERICAN 42 mL/min (90-120)
[2021-02-14 06:01] LABS: APTT 28.4 SECONDS (22.8-39.4); INR 1.24 (0.85-1.17); PROTIME 14.5 SECONDS (11.6-15.0)
[2021-02-14 06:04] LABS: CALC OSMOLALITY 291 mosm/kg (275-300); CREATININE - SERUM 1.7 mg/dL (0.6-1.3); UREA NITROGEN 34 mg/dL (7-18)
[2021-02-14 06:11] LABS: EOSINOPHILS 1 % (0-7); LYMPHOCYTES 1 % (15-50); MONOCYTES 16 % (2-11); NEUTROPHILS 81 % (40-80); PLATELET ESTIMATE NORMAL
[2021-02-14 06:22] LABS: ALBUMIN 2.7 g/dL (3.4-5.0); ALKALINE PHOSPHATASE 90 U/L (30-120); LIPASE 134 U/L (73-393); MAGNESIUM - SERUM 2.3 mg/dL (1.8-2.4); PRO BNP 24220 pg/mL (0-125); PROTEIN - SERUM 6.1 g/dL (6.4-8.2)
[2021-02-14 06:27] LABS: ALT (SGPT) 126 U/L (10-68); C-REACTIVE PROTEIN < 0.2 mg/dL (0.0-0.9)
[2021-02-14 06:36] LABS: D-DIMER-QUANTITATIVE 17.58 ug/mLFEU (0.20-0.54)
[2021-02-14 08:51] LABS: BILIRUBIN NEGATIVE (NEGATIVE); KETONE NEGATIVE (NEGATIVE); NITRITE NEGATIVE (NEGATIVE); UROBILINOGEN NORMAL mg/dL (< 2)
[2021-02-14 08:54] LABS: WHITE CELLS - URINE 0-5 HPF (0-1)
[2021-02-14 08:55] LABS: BACTERIA FEW HPF (NONE SEEN); GRANULAR CAST 0-5 LPF (NONE SEEN); SQUAMOUS EPITHELIAL 0-5 HPF (0-4)
[2021-02-14 08:59] LABS: UDS - AMPHET NEGATIVE QUAL (NEGATIVE); UDS - BARB NEGATIVE QUAL (NEGATIVE); UDS - BENZO NEGATIVE QUAL (NEGATIVE); UDS - COCAINE NEGATIVE QUAL (NEGATIVE); UDS - OPIATE NEGATIVE QUAL (NEGATIVE); UDS - PCP NEGATIVE QUAL (NEGATIVE); UDS - THC NEGATIVE QUAL (NEGATIVE)
[2021-02-15] VITALS (44 sets, daily range): BP systolic 85–117; BP diastolic 50–73; Ht 188 cm; Wt 78.3 kg
--- NOTE | 2021-02-15 00:58 | NUR ---
RT PLACED ON BIPAP PER RT 18/04 35%. RESTING WELL. LESS TACHYCARDIA ON 7MKM OF DOBUTAMINE FROM 10. WILL CONT TO MONITOR.
--- NOTE | 2021-02-15 02:59 | NUR ---
PT REQUESTING TO BE OFF BIPAP FOR A BIT. PLACED ON STANDBY AND RETURNED TO 5L OH.
[2021-02-15 04:40] LABS: BASOPHILS 0.1 % (0-2); EOSINOPHILS 0 % (0-7); IMMATURE GRANULOCYTES 1.4 % (0-5); LYMPHOCYTE ABS# 0.56 10x3/uL (1.32-3.57); LYMPHOCYTES 3.1 % (15-50); MCH 30.7 pg (26.0-34.0); MCHC 32.4 g/dL (31.0-37.0); MCV 94.7 fL (80.0-100.0); MONOCYTES 8.3 % (2-11); NEUTROPHIL ABS# 15.56 10x3/uL (1.78-5.38); NEUTROPHILS 87.1 % (40-80); RDW 15.3 % (11.5-14.5)
[2021-02-15 04:44] LABS: HEMATOCRIT 40.7 % (42.0-54.0); HEMOGLOBIN 13.2 g/dL (13.5-17.5); PLATELET COUNT 146 10x3/uL (130-400); WBC 17.9 10x3/uL (4.8-10.8)
[2021-02-15 05:27] LABS: ALBUMIN 2.3 g/dL (3.4-5.0); ANION GAP 9.1 mmol/L (8-16); BILIRUBIN - TOTAL 0.45 mg/dL (0.2-1.3); CALCIUM 8.3 mg/dL (8.5-10.1); CARBON DIOXIDE 30.9 mmol/L (21.0-32.0); CREATININE - SERUM 1.7 mg/dL (0.6-1.3); MAGNESIUM - SERUM 2.3 mg/dL (1.8-2.4); PHOSPHOROUS 4.9 mg/dL (2.5-4.9); PROTEIN - SERUM 5.3 g/dL (6.4-8.2); VANCOMYCIN - RANDOM 7.9 ug/mL (10.0-20.0)
[2021-02-15 05:36] LABS: TROPONIN-I 1.186 ng/mL (0.000-0.060)
[2021-02-16] VITALS (21 sets, daily range): BP systolic 98–131; BP diastolic 59–89
[2021-02-16 05:00] LABS: BASOPHILS 0.2 % (0-2); EOSINOPHILS 0.1 % (0-7); HEMOGLOBIN 13.5 g/dL (13.5-17.5); LYMPHOCYTE ABS# 1.13 10x3/uL (1.32-3.57); LYMPHOCYTES 5.7 % (15-50); MCH 30.4 pg (26.0-34.0); MCHC 31.4 g/dL (31.0-37.0); MEAN PLATELET VOLUME 11.6 fL (7.4-10.4); MONOCYTES 6.7 % (2-11); NEUTROPHIL ABS# 16.85 10x3/uL (1.78-5.38); NEUTROPHILS 85.3 % (40-80); RBC 4.44 10x6/uL (4.20-6.10); RDW 15.1 % (11.5-14.5); WBC 19.7 10x3/uL (4.8-10.8)
[2021-02-16 05:21] LABS: MCV 96.8 fL (80.0-100.0); PLATELET COUNT 178 10x3/uL (130-400)
[2021-02-16 05:37] LABS: ALBUMIN 2.3 g/dL (3.4-5.0); ANION GAP 9.6 mmol/L (8-16); BILIRUBIN - TOTAL 0.31 mg/dL (0.2-1.3); CALCIUM 8.4 mg/dL (8.5-10.1); CARBON DIOXIDE 34.5 mmol/L (21.0-32.0); CREATININE - SERUM 2.1 mg/dL (0.6-1.3); MAGNESIUM - SERUM 2.3 mg/dL (1.8-2.4); PHOSPHOROUS 4.9 mg/dL (2.5-4.9); POTASSIUM - SERUM 4.1 mmol/L (3.5-5.1); PROTEIN - SERUM 5.5 g/dL (6.4-8.2); VANCOMYCIN - RANDOM 16.2 ug/mL (10.0-20.0)
--- NOTE | 2021-02-16 07:00 | NUR ---
REPORT RECEIVED. ASSESSMENT COMPLETE PER FLOW SHEET. VSS. DNEIES NEEDS.
--- NOTE | 2021-02-16 08:45 | NUR ---
family at bedside given update no new changes
--- NOTE | 2021-02-16 09:15 | NUR ---
dr chau at bedside new orders received. will adm.
--- NOTE | 2021-02-16 10:15 | NUR ---
HENRY GONZALES WITH CARDIOLOGY AT BEDSIDE GIVEN UPDATE REGAURDING AMNIO, MEDICATIONS CHANGES. WILL ADM.
--- NOTE | 2021-02-16 11:00 | NUR ---
REASSESSMENT COMPLETE PER FLOW SHEET. VSS. NO NEW CHANGES. WILL CONTINUE TOMONITOR
--- NOTE | 2021-02-16 15:00 | NUR ---
REASSESSMENT COMPLETE PER FLOW SHEET. VSS. PT RESTING COMFORTABLY UP IN CHIAR DENIES NEEDS.
[2021-02-17 03:00] VITALS: BP 133/71
--- NOTE | 2021-02-17 07:00 | NUR ---
AWAKE AND ALERT SKIN WARM AND DRY. SALINE LOCK IV'S BOTH ARMS WITHOUT REDNESS OR SWELLING. MONITOR SR WITH PVC'S. NO DISTRESS. OXYGEN AT 2 LITERS PER NC. USING URINAL. DENIES PAIN.
[2021-02-17 07:21] LABS: HEMATOCRIT 46.7 % (42.0-54.0); HEMOGLOBIN 15.1 g/dL (13.5-17.5); LYMPHOCYTE ABS# 1.09 10x3/uL (1.32-3.57); MCH 30.9 pg (26.0-34.0); MCHC 32.3 g/dL (31.0-37.0); MCV 95.7 fL (80.0-100.0); MEAN PLATELET VOLUME 11.8 fL (7.4-10.4); NEUTROPHIL ABS# 17.49 10x3/uL (1.78-5.38); PLATELET COUNT 182 10x3/uL (130-400); RBC 4.88 10x6/uL (4.20-6.10); RDW 14.7 % (11.5-14.5); WBC 20.2 10x3/uL (4.8-10.8)
[2021-02-17 07:44] LABS: ALBUMIN 2.5 g/dL (3.4-5.0); ANION GAP 8.9 mmol/L (8-16); BILIRUBIN - TOTAL 0.39 mg/dL (0.2-1.3); CALCIUM 8.7 mg/dL (8.5-10.1); CARBON DIOXIDE 36.3 mmol/L (21.0-32.0); CREATININE - SERUM 1.6 mg/dL (0.6-1.3); MAGNESIUM - SERUM 2.4 mg/dL (1.8-2.4); POTASSIUM - SERUM 4.2 mmol/L (3.5-5.1); PROTEIN - SERUM 5.4 g/dL (6.4-8.2); VANCOMYCIN - RANDOM 18.8 ug/mL (10.0-20.0)
[2021-02-17 07:47] LABS: PHOSPHOROUS 3.3 mg/dL (2.5-4.9)
[2021-02-17 08:00] VITALS: BP 138/76
[2021-02-17 08:13] LABS: LYMPHOCYTES 7 % (15-50); MONOCYTES 1 % (2-11); NEUTROPHILS 90 % (40-80)
[2021-02-17 08:35] LABS: PLATELET ESTIMATE NORMAL
--- NOTE | 2021-02-17 10:08 | NUR ---
UP IN CHAIR AT BEDSIDE WITH MINIMAL ASSISTANCES. TOLERATED WELL.
[2021-02-17 11:36] VITALS: BP 122/88
--- NOTE | 2021-02-17 13:22 | NUR ---
REPORT CALLED TO [facility]. TRANFERED TO ROOM 2115 PER WHEELCHAIR. AMBULATED TO CHAIR. TOLERATED WELL.
--- NOTE | 2021-02-17 13:31 | NUR ---
RECIEVED PT FROM ICU VIA WHEELCHAIR. PT ABLE TO TRANSFER FROM WHEELCHAIR TO CHAIR WITH STEADY GAIT. PT A/O X4. RESPIRATIONS EVEN AND UNLABORED ON 2L HF. ORIENTED PT TO ROOM AND CALL LIGHT. ALL NEEDS MET. CALL LIGHT IN REACH WILL CONTINUE PLAN OF CARE.
[2021-02-17 16:20] VITALS: BP 135/72
[2021-02-17 21:00] VITALS: BP 123/80
[2021-02-18 00:15] VITALS: BP 120/80
[2021-02-18 04:56] VITALS: BP 120/75
[2021-02-18 06:47] LABS: BASOPHILS 0.1 % (0-2); EOSINOPHILS 0 % (0-7); HEMATOCRIT 48.3 % (42.0-54.0); HEMOGLOBIN 15.9 g/dL (13.5-17.5); IMMATURE GRANULOCYTES 1.2 % (0-5); LYMPHOCYTE ABS# 1.49 10x3/uL (1.32-3.57); LYMPHOCYTES 7.2 % (15-50); MCH 31.2 pg (26.0-34.0); MCHC 32.9 g/dL (31.0-37.0); MCV 94.9 fL (80.0-100.0); MEAN PLATELET VOLUME 11.5 fL (7.4-10.4); MONOCYTES 6.8 % (2-11); NEUTROPHIL ABS# 17.61 10x3/uL (1.78-5.38); NEUTROPHILS 84.7 % (40-80); PLATELET COUNT 202 10x3/uL (130-400); RBC 5.09 10x6/uL (4.20-6.10); RDW 14.8 % (11.5-14.5); WBC 20.8 10x3/uL (4.8-10.8)
[2021-02-18 07:40] LABS: ALBUMIN 2.3 g/dL (3.4-5.0); ANION GAP 8.8 mmol/L (8-16); BILIRUBIN - TOTAL 0.51 mg/dL (0.2-1.3); CALCIUM 8.8 mg/dL (8.5-10.1); CARBON DIOXIDE 33.7 mmol/L (21.0-32.0); CREATININE - SERUM 1.4 mg/dL (0.6-1.3); MAGNESIUM - SERUM 2.3 mg/dL (1.8-2.4); PHOSPHOROUS 2.7 mg/dL (2.5-4.9); POTASSIUM - SERUM 4.5 mmol/L (3.5-5.1); PROTEIN - SERUM 5.5 g/dL (6.4-8.2); VANCOMYCIN - RANDOM 20.5 ug/mL (10.0-20.0)
[2021-02-18 07:49] VITALS: BP 116/81
--- NOTE | 2021-02-18 08:18 | NUR ---
AM MEDS GIVEN AT THIS TIME. PT A/O X4, RESP EVEN AND NONLABORED ON 2L HF. LT FA IV SL. PACED-78 ON TELE. PT DENIES ANY NEEDS AT THIS TIME. CALL LGIHT IN REACH, WILL CONTIUE PLAN OF CARE.
[2021-02-18 12:24] VITALS: BP 105/69
--- NOTE | 2021-02-18 15:32 | NUR ---
INFORMED DR. DOUGLAS THAT PT WAS TAKING OFF DOBUTREX DRIP IN ICU YESTERDAY. PT STATES THAT HE TAKES ENTRESTO AT HOME. PER DR. DOUGLAS HE WANTS TO WAIT ANOTHER DAY TO SEE HOW HIS CREATITINE DOES.
[2021-02-18 15:53] VITALS: BP 124/70
--- NOTE | 2021-02-18 19:39 | NUR ---
RECEIVED REPORT, WILL ASSUME CARE OF PT, IN BED, DENIES ANY NEEDS, BED IS LOW, SRX2, CALL LIGHT IN REACH, WILL CONTINUE PLAN OF CARE
[2021-02-18 20:44] VITALS: BP 118/83
[2021-02-19 02:21] VITALS: BP 114/74
[2021-02-19 05:25] VITALS: BP 113/72
[2021-02-19 06:24] LABS: BASOPHILS 0.1 % (0-2); EOSINOPHILS 0 % (0-7); HEMATOCRIT 47.6 % (42.0-54.0); HEMOGLOBIN 15.6 g/dL (13.5-17.5); IMMATURE GRANULOCYTES 1.5 % (0-5); LYMPHOCYTE ABS# 1.09 10x3/uL (1.32-3.57); LYMPHOCYTES 7.1 % (15-50); MCH 31.1 pg (26.0-34.0); MCHC 32.8 g/dL (31.0-37.0); MCV 94.8 fL (80.0-100.0); MEAN PLATELET VOLUME 11.2 fL (7.4-10.4); MONOCYTES 5.8 % (2-11); NEUTROPHIL ABS# 13.22 10x3/uL (1.78-5.38); NEUTROPHILS 85.5 % (40-80); PLATELET COUNT 190 10x3/uL (130-400); RBC 5.02 10x6/uL (4.20-6.10); RDW 14.8 % (11.5-14.5)
[2021-02-19 06:34] LABS: WBC 15.5 10x3/uL (4.8-10.8)
[2021-02-19 06:36] LABS: ALBUMIN 2.5 g/dL (3.4-5.0); ANION GAP 7.9 mmol/L (8-16); BILIRUBIN - TOTAL 0.49 mg/dL (0.2-1.3); CALCIUM 8.5 mg/dL (8.5-10.1); CARBON DIOXIDE 36.1 mmol/L (21.0-32.0); CREATININE - SERUM 1.5 mg/dL (0.6-1.3); MAGNESIUM - SERUM 2.3 mg/dL (1.8-2.4); PHOSPHOROUS 3.3 mg/dL (2.5-4.9); PROTEIN - SERUM 5.5 g/dL (6.4-8.2); VANCOMYCIN - RANDOM 13.5 ug/mL (10.0-20.0)
[2021-02-19 08:42] VITALS: BP 127/82
--- NOTE | 2021-02-19 08:58 | NUR ---
NOTIFIED BY PHYSIOTHERAPY PRACTICE MANAGER THAT PT HAD A 24 BEAT RUN OF VTACH. PT UP TO CHAIR, ASYMPTOMATIC. STRIP SHOWED TO HENRY LINDA OVERLOCK ELASTIC ATTACHER. PER HENRY LINDA NOT VTACH. NO NEW ORDERS.
--- NOTE | 2021-02-19 11:14 | NUR ---
REHAB PRESCREEN RECEIVED. PATIENT IS CURRENTLY PENDING HIS THERAPY EVALUATIONS. I WILL LOOK BACK IN HIS CHART LATER THIS AFTERNOON, AND IF MEETS INPATIENT CRITERIA, I WILL CALL YARA FOR AUTHORIZATION. THANK YOU FOR THIS REFERRAL. JORDEN COLUNGA RN CLINICAL LIAISON, INPATIENT REHAB.
--- NOTE | 2021-02-19 12:51 | NUR ---
Nutrition Follow-up: Diet: 4GM sodium restriction PO intake: 100% all meals. States that he is "eating everything they throw in front of me!" Last BM: 02/18/21 Wt: 172# (02/18/21); 194.1# (02/17/21); Admit Wt: 190.6# (02/14/21) Meds noted: prednisone, abx, lasix Labs noted: BUN 46(H), Cr 1.5(H), GFR 49(L), Glu 109(H) Recommend: -Continue current diet. Will continue to honor food preferences within diet restrictions. -Will continue to monitor PO intake and wt trend. -RD will follow-up 02/22/21.
--- NOTE | 2021-02-19 14:03 | NUR ---
PT BACK TO BED, RESTING COMFORTABLY IN BED, DENIES ANY NEEDS, CALL LIGHT IN REACH.
--- NOTE | 2021-02-19 20:15 | NUR ---
RECIEVED UP IN BED WITH EYES OPEN AND TV ON. ALERT AND ORIENTED X4. UP WITH ASSIST. USES URINAL IN BED. DENIES ANY NEEDS AT THIS TIME.
[2021-02-20 05:10] LABS: BASOPHILS 0.3 % (0-2); EOSINOPHILS 0.6 % (0-7); HEMATOCRIT 47.9 % (42.0-54.0); LYMPHOCYTES 2.6 % (15-50); MCH 30.8 pg (26.0-34.0); MCHC 33.4 g/dL (31.0-37.0); MEAN PLATELET VOLUME 8.9 fL (7.4-10.4); MONOCYTES 6.3 % (2-11); NEUTROPHILS 90.2 % (40-80); PLATELET COUNT 190 10x3/uL (130-400); RDW 15.2 % (11.5-14.5); WBC 16.5 10x3/uL (4.8-10.8)
[2021-02-20 05:23] LABS: MCV 92.1 fL (80.0-100.0)
[2021-02-20 06:11] LABS: ALBUMIN 2.8 g/dL (3.4-5.0); ANION GAP 7.7 mmol/L (8-16); BILIRUBIN - TOTAL 0.5 mg/dL (0.2-1.3); CALCIUM 8.9 mg/dL (8.5-10.1); CARBON DIOXIDE 37.2 mmol/L (21.0-32.0); CREATININE - SERUM 1.6 mg/dL (0.6-1.3); MAGNESIUM - SERUM 2.4 mg/dL (1.8-2.4); POTASSIUM - SERUM 3.9 mmol/L (3.5-5.1); VANCOMYCIN - RANDOM 20.7 ug/mL (10.0-20.0)
[2021-02-20] MEDS ORDERED: ADOXA100 MG PO (10:47)
--- NOTE | 2021-02-20 11:47 | MORECARE ---
CASE MANAGEMENT DISCHARGE SUMMARY PATIENT: TESSIE STOLL UNIT: [id number] ADM DATE: 02/14/21 AGE: 75 : 47 SEX: M ROOM/BED: D.2114 AUTHOR: MAGEN,DOC PHYSICIAN: REFERRING PHYSICIAN: PANDA RASMUSSEN MD DATE OF SERVICE: 02/20/21 Case Management Discharge Planning Summary COMMENTS ENTERED DATE: 02/20/21 11:40 CT COMMENT TYPE: Discharge Planning REVIEWER: Archana Bridges CM received discharge orders. He has Auth for inpatient rehab at [facility]. Auth #[id number]. AFIA for [facility] inpatient rehab signed. IMM explained, signed, served, and copy placed in MR. He states he lives with family and is independent with his care. He does have home oxygen, is unsure of oxygen DME company. States he was only home 8 hours last time before returning to the hospital. States "my heart just acted up." Discharging to inpatient rehab today. DCP REVIEW SUMMARY ANTICIPATED D/C DATE: EXPECTED LOS : CASE STATUS: DCP Initiated INITIAL REVIEW: 02/20/2021 INITIAL REVIEWER: Archana Bridges FINAL DISCHARGE DISPOSITION: : FINAL REVIEWER: FINAL REVIEW DATE: DCP Focus Questions & Answers DCP Screen QUESTION: ANSWER High Risk Factors: : Readmission within past 30 days DCP Evaluation QUESTION: ANSWER Patient gives permission to discuss discharge plans with: (name, relationship and number) : Tiffanie Stoll - DTR - [phone] Patient's ability to cope with chronic illness : a. Adequate (0-3 ED visits in 6 mos., adequate financial resources, attends scheduled appts.) Family / Caregiver's ability to cope with chronic illness: : a. Adequate (ability to meet patient's medical needs, ensures patient attends medical appts.) Living Arrangements: : Home with others Baseline cognitive status: : *Oriented to person, place, situation, time and present Pharmacy name(s): : [facility] [place] Does Patient have transportation to get home and to follow-up medical appointments when discharged from the hospital? : Yes Would patient like to participate in any Care Coordination programs (if applicable): : Not applicable Does the patient have electricity at home? : Yes Does the patient have running water in their house? : Yes Equipment in use: : Home Oxygen with Nasal Cannula Mental health screen: : No mental health history DCP Re-evaluation QUESTION: ANSWER Would patient like to participate in any Care Coordination programs (if applicable): : Not applicable PATIENT: TESSIE STOLL ENCOUNTER: [id number] MEDICAL RECORD#: [id number] ADMISSION DATE: 02/14/2021 DISCHARGE DATE: ATTENDING MD: ROSY: AGE: 75 MARITAL STATUS: W DC PLAN ID: [id number] FACILITY: PRINTED ON: 02/20/21 11:47 CT All edits/amendments must be made on the electronic document DICTATION DATE: 02/20/21 114 PHOTOENGRAVING SKETCH MAKER: STEVENSON 02/20/21 1147 RPT#: [id number] DC DATE: STATUS: ADM IN [address] [place] [address] END OF REPORT
--- NOTE | 2021-02-20 13:25 | NUR ---
PATIENT HAS BEEN ACCEPTED TO INPATIENT REHAB. HE WILL GO TO RM 1114A. I HAVE RELAYED THIS TO ILEANA FLOR CM AND ILEANA ALFAROFLUOROSCOPE OPERATOR. FACE SHEET FAXED TO ADMISSION.
--- NOTE | 2021-02-20 14:07 | EC ---
PATIENT:TESSIE STOLL DATE OF SERVICE: 02/14/21 SEX: M MEDICAL RECORD: [id number] DATE OF : 49 LOCATION:D.M2 D.211 AGE OF PATIENT: 75 ADMISSION DATE: 02/14/21 REFERRING PHYSICIAN: INTERPRETING PHYSICIAN: PANDA ZELAYA MD ECHOCARDIOGRAM REPORT ECHO CHARGES 5 ECHO LIMITED Date: 02/14/21 CLINICAL DIAGNOSIS: PULMONARY EDEMA ECHOCARDIOGRAPHIC MEASUREMENTS (adult normal given) AC root (d.<3.7cm) 0 cm LV Septum d (<1.2 cm> 0 cm Valve Excursion 0 cm LV Septum (systole) 0 cm Left Atria (s.<4.0cm> 0 cm LVPW d(<1.2cm) cm RV (d.<2.3cm) 0 cm LVPW (sytole) 0 cm LV diastole(<5.6CM) 0 cm MV E-F(>70mm/sec) 0 cm LV systole 0 cm LVOT Diameter 00 cm MV exc.(>10mm) 0 cm Est.ejection fraction (50-75%) % DOPPLER: LVIT cm/sec A 0 cm/sec E cm/sec LA 0 cm/sec RVSP 0 mmHg LVOT 0 cm/sec AOP1/2T m/s Asc. Ao 0 cm/sec RVOT 0 cm/sec RA 0 cm/sec PA 0 cm/sec AV Gradient Peak mmHg AV Mean 0 mmHg AV Area 0 cm MV Gradient Peak 0 mmHg MV Mean 0 mmHg MV Area cm COMMENTS: Invertebrate Paleontologist: Yunier GAVIN Linotype Machinist Apprentice: 3 Dr. Lozada TAPE# Pericardial Effusion N DATE OF SERVICE: Limited 2D color flow FINDINGS: LVH is present. LV internal dimensions were normal. LV is globally hypokinetic with reduced EF, estimated EF 20% to 25%. Aortic valve is sclerosed without evidence of stenosis by Doppler interrogation. Trivial AI by color flow imaging. Left atrium grossly appears normal. Mitral valve grossly appears normal. Trivial MR. Right-sided chambers are grossly normal. Mild TR. ECHOCARDIOGRAM REPORT [id number] TESSIE STOLL TRANSINT:[id number] Voice Confirmation ID: [id number] DOCUMENT ID: [id number] PANDA ZELAYA MD at 5801 CC: [id number] DICTATION DATE: 02/15/2142 CELLOPHANE PRESS OPERATOR: 02/15/[address] [facility] [address] [place] [address]
--- NOTE | 2021-02-20 15:12 | NUR ---
OT NOTE: PT PERFORMED WELL TODAY. BED MOB WITH MIN ASSIST; ABLE TO MAKENZIE PANTS WITH MIN ASSIST; SIMPLE GROOMING WITH SET UP; AMB AROUND BED AND INTO HALLWAY APPROX 35 FT WITH WALKER AND CGA; TRANSFERRED TO CHAIR WITH MIN ASSIST; PT VERY SOB.. 02 SATS DROPPED INTO MID/HIGH 80S BUT RECOUPED QUICKLY. WILMA JENKINS, OTR/L [phone]
--- NOTE | 2021-02-20 16:21 | NUR ---
ALERT AND ORIENTED X4. SITTING UP IN BED. DC LT FA IV TIP INTACT. DISCHARGE INSTRUCTIONS GIVEN VERBALLY AND WRITTEN. DISCHARGE PAPERS SIGNED ON CHART. REPORT CALLED TO ILEANA HUGHES IN REHAB. TRANSFER TO [facility] VIA BED. REMAINS FREE FROM INJURY.
--- NOTE | 2021-02-20 16:34 | MORECARE ---
CASE MANAGEMENT DISCHARGE SUMMARY PATIENT: TESSIE STOLL UNIT: [id number] ADM DATE: 02/14/21 AGE: 75 : 47 SEX: M ROOM/BED: D.2114 AUTHOR: MAGEN,DOC PHYSICIAN: REFERRING PHYSICIAN: PANDA RASMUSSEN MD DATE OF SERVICE: 02/20/21 Case Management Discharge Planning Summary COMMENTS ENTERED DATE: 02/20/21 11:40 CT COMMENT TYPE: Discharge Planning REVIEWER: Archana Bridges CM received discharge orders. He has Auth for inpatient rehab at [facility]. Auth #[id number]. AFIA for [facility] inpatient rehab signed. IMM explained, signed, served, and copy placed in MR. He states he lives with family and is independent with his care. He does have home oxygen, is unsure of oxygen DME company. States he was only home 8 hours last time before returning to the hospital. States "my heart just acted up." Discharging to inpatient rehab today. DCP REVIEW SUMMARY ANTICIPATED D/C DATE: EXPECTED LOS : CASE STATUS: DCP Initiated INITIAL REVIEW: 02/20/2021 INITIAL REVIEWER: Archana Bridges FINAL DISCHARGE DISPOSITION: : FINAL REVIEWER: FINAL REVIEW DATE: DCP Focus Questions & Answers DCP Screen QUESTION: ANSWER High Risk Factors: : Readmission within past 30 days DCP Evaluation QUESTION: ANSWER Patient gives permission to discuss discharge plans with: (name, relationship and number) : Tiffanie Stoll - DTR - [phone] Patient's ability to cope with chronic illness : a. Adequate (0-3 ED visits in 6 mos., adequate financial resources, attends scheduled appts.) Family / Caregiver's ability to cope with chronic illness: : a. Adequate (ability to meet patient's medical needs, ensures patient attends medical appts.) Living Arrangements: : Home with others Baseline cognitive status: : *Oriented to person, place, situation, time and present Pharmacy name(s): : [facility] in [place] Does Patient have transportation to get home and to follow-up medical appointments when discharged from the hospital? : Yes Would patient like to participate in any Care Coordination programs (if applicable): : Not applicable Does the patient have electricity at home? : Yes Does the patient have running water in their house? : Yes Equipment in use: : Home Oxygen with Nasal Cannula Mental health screen: : No mental health history DCP Re-evaluation QUESTION: ANSWER Would patient like to participate in any Care Coordination programs (if applicable): : Not applicable PATIENT: TESSIE STOLL ENCOUNTER: [id number] MEDICAL RECORD#: [id number] ADMISSION DATE: 02/14/2021 DISCHARGE DATE: 02/20/2021 ATTENDING MD: ROSY: 194- AGE: 75 MARITAL STATUS: W DC PLAN ID: [id number] FACILITY: [facility] PRINTED ON: 02/20/21 16:34 CT All edits/amendments must be made on the electronic document DICTATION DATE: 02/20/211633 MILITARY LAWYER: STEVENSON 02/20/21 163 RPT#: [id number] DC DATE:02/20/21 STATUS: DIS IN [facility] [address] [place] [address] END OF REPORT
[2021-02-20] MEDS ORDERED: FLORINEF 0.1 M0.1 MG PO (18:19)
[2021-02-20] MEDS ORDERED: LOVENOX80 MG/0.8 SC (18:20)
[2021-02-20] MEDS ORDERED: MUPIROCIN22 GM TOPICAL (18:20)
[2021-02-20] MEDS ORDERED: FLORAJEN DIGES1 EACH PO (18:21)
== END 2021-02-20 16:23 | DRG 280 ==
LOC: D.ER 04:33 → D.ICU 05:34 → D.M2 02-17 13:17
PROVIDERS: Family Medicine; ADMIT Family Medicine; ATTEND Family Medicine
PROC: 5A09357 Assistance with Respiratory Ventilation, Less than 24 Consecutive Hours, Continuous Positive Airway Pressure (ICD-10-PCS; principal; 2021-02-14)
DX: I13.0 Hypertensive heart and chronic kidney disease with heart failure and stage 1 through stage 4 chronic kidney disease, or unspecified chronic kidney disease (principal); J96.20 Acute and chronic respiratory failure, unspecified whether with hypoxia or hypercapnia; I21.4 Non-ST elevation (NSTEMI) myocardial infarction; I50.23 Acute on chronic systolic (congestive) heart failure; J18.9 Pneumonia, unspecified organism; I21.A1 Myocardial infarction type 2; N17.9 Acute kidney failure, unspecified; E78.5 Hyperlipidemia, unspecified; J44.9 Chronic obstructive pulmonary disease, unspecified; J84.10 Pulmonary fibrosis, unspecified; Z99.81 Dependence on supplemental oxygen; K21.9 Gastro-esophageal reflux disease without esophagitis; I25.5 Ischemic cardiomyopathy; D75.1 Secondary polycythemia; N18.9 Chronic kidney disease, unspecified; I48.91 Unspecified atrial fibrillation; R59.0 Localized enlarged lymph nodes

== ENCOUNTER 2021-02-20 14:30 | Inpatient (IN) | payer MEDICARE ==
[~2021-02-20] VITALS: Ht 188 cm; Wt 78.9 kg
[~2021-02-20 14:30] MED LIST changes: +ADOXA100 MG PO
[2021-02-20 17:13] VITALS: BP 120/81; BMI 22.4
[2021-02-20] MEDS ORDERED: FLORINEF 0.1 M0.1 MG PO (18:19)
[2021-02-20] MEDS ORDERED: MUPIROCIN22 GM TOPICAL (18:20)
[2021-02-20] MEDS ORDERED: LOVENOX80 MG/0.8 SC (18:20)
[2021-02-20] MEDS ORDERED: FLORAJEN DIGES1 EACH PO (18:21)
--- NOTE | 2021-02-20 18:49 | NUR ---
BEDSIDE REPORT COMPLETE. RECEIVED PT SITTING UP IN BED. ALERT AND ORIENTED X4. NO IV NOTED. CONTINUES ON 2L VIA NC. TELEMETRY INTACT. LEFT PACER/DEFIB NOTED. BUE BRUISING NOTED. BUTTOCK/COCCYX REDNESS, TENDER, BLANCHABLE. BUTTPASTE APPLIED. ENCOURAGED Q2H TURN, PT IS ABLE TO SELF TURN. PT DENIES ANY NEEDS OR PAIN. CALL LIGHT AND URINAL WITHIN REACH. FALL PRECAUTIONS IN PLACE. CPOC
[2021-02-20 20:09] VITALS: BP 120/81
--- NOTE | 2021-02-21 01:41 | NUR ---
MERY MANAGER COLLEGE CALLED AND REPORTED PT SHOWED RUN OF 7 VTACH NOW SR 82, PER MERY THIS IS NOT UNUSUAL FOR PT AND PRODUCT BLENDING SUPERVISOR IS AWARE AND STATES IT IS NORMAL NOT A TRUE VTACH. PT IS ASYMPTOMATIC, PT IS LYING IN BED RESTING COMFORTABLY AND EASILY AROUSED WITH VERBAL STIMULI.
--- NOTE | 2021-02-21 02:38 | NUR ---
PT LYING IN BED EYES CLOSED RESTING. RR EVEN AND UNLABORED. CONTINUES ON O2/2L VIA NC. CALL LIGHT WITHIN REACH.
[2021-02-21 06:05] LABS: BASOPHILS 0.2 % (0-2); EOSINOPHILS 2.1 % (0-7); HEMATOCRIT 46.9 % (42.0-54.0); HEMOGLOBIN 15.4 g/dL (13.5-17.5); LYMPHOCYTES 7.7 % (15-50); MCH 30.1 pg (26.0-34.0); MCHC 32.8 g/dL (31.0-37.0); MCV 91.6 fL (80.0-100.0); MEAN PLATELET VOLUME 8.6 fL (7.4-10.4); MONOCYTES 8.8 % (2-11); NEUTROPHILS 81.2 % (40-80); PLATELET COUNT 194 10x3/uL (130-400); RBC 5.12 10x6/uL (4.20-6.10); RDW 15.1 % (11.5-14.5); WBC 16.2 10x3/uL (4.8-10.8)
[2021-02-21 06:20] LABS: ANION GAP 7.3 mmol/L (8-16); CALCIUM 8.6 mg/dL (8.5-10.1); CARBON DIOXIDE 36.5 mmol/L (21.0-32.0); CREATININE - SERUM 1.3 mg/dL (0.6-1.3); POTASSIUM - SERUM 3.8 mmol/L (3.5-5.1)
[2021-02-21 08:00] VITALS: BP 127/82
--- NOTE | 2021-02-21 08:00 | NUR ---
SHIFT ASSMT COMPLETED.
[2021-02-21 08:09] VITALS: BP 127/82
--- NOTE | 2021-02-21 11:36 | NUR ---
PATIENT ADMITTS TO [facility] FROM ACUTE FLOOR. HIS PCP IS MELLISA MCCARTHY. DISCHARGE PLANS ARE FOR HIM TO RETURN TO HIS HOME. WILL CONTINUE TO FOLLOW WITH PATIENT.
[2021-02-21 13:31] VITALS: BMI 22.3
[2021-02-21 16:07] VITALS: Ht 188 cm; Wt 78.9 kg
--- NOTE | 2021-02-21 19:33 | NUR ---
AWAKE AND ALERT. UP TO BATHROOM SISTER IN ROOM.
[2021-02-21 20:05] VITALS: BP 90/69
--- NOTE | 2021-02-22 04:59 | RHP ---
PATIENT: TESSIE STOLL MEDICAL RECORD: [id number] ACCOUNT: [id number] [facility] [birth year] AD[facility]ION DATE: 02/20/21 REHABILITATION HISTORY AND PHYSICAL EXAMINATION POST ADMISSION PHYSICIAN EXAMINATION ADMITTING DIAGNOSIS: Congestive heart failure myopathy. HISTORY OF PRESENT ILLNESS: The patient presented to the ED via EMS as a transfer from [facility] in [place] secondary to respiratory distress. He had been discharged from our facility following a hospitalization for non-ST segment elevation [place], pneumomediastinum. The patient reports he was home for 4 hours and became increasingly short of breath. Chest x-ray showed pulmonary edema. ABG showed a combination of respiratory and metabolic acidosis. He was placed on BiPAP, given Solu-Medrol, Lopressor, DuoNeb. He presented to the ER here where he was markedly short of breath. The patient was noted to have flash pulmonary edema. He was noted to have AFib, pulmonary edema. He was placed in the ICU. Cardiology and Pulmonary were consulted. He had appropriate treatment throughout his stay to improve him. They worked on his blood pressures, worked on the pulmonary edema. The patient has now progressed out of the ICU. He is currently on 2 liters of nasal cannula. He has got Physical and Occupational Therapy seen at this time. He is standing with machines with a rolling walker for approximately 15 feet and will be working on progress. He is very fatigued and short of breath. The patient does obey commands well. He is very intensified to get back home. The patient will need to be able to travel 48 steps so that he can get to his boat and go fishing with his grandson. He is medically fragile and at risk for complications. He will require therapy, nursing and medical management to get back to his prior level of functioning. All these reasons, he currently cannot return home at this time. Comorbidities include acute respiratory failure, atrial fib, acute kidney disease, coronary artery disease, COPD, difficulty walking, dyslipidemia, electrolyte imbalance, elevated troponin, metabolic acidosis, leukocytosis, cardiomyopathy, pneumonia, pulmonary edema, shortness of breath and transaminitis. PAST MEDICAL HISTORY: Significant for pulmonary fibrosis, coronary artery disease, systolic congestive heart failure, cardiomyopathy, mitral regurgitation, hypertension, hyperlipidemia, COPD, pacemaker placement and defibrillator placement. PAST SURGICAL HISTORY: Includes a PTCA and pacemaker placement. ALLERGIES: No known drug allergies. CURRENT MEDICATIONS: Include Floranex 1 cap daily. He is on Florinef 0.1 mg daily; prednisone 40 mg, he is on a tapering dose; aspirin chewable 81 mg daily; Coreg 3.125 mg daily; Protonix 40 mg daily; doxycycline 100 mg q.12 hours; Bactroban nasal spray. He is on budesonide 0.5 mg b.i.d., Atrovent updrafts, Lovenox 90 mg q.24 hours. He is on DuoNeb, Xanax 0.25 mg b.i.d. p.r.n. and MiraLax 17 grams once daily. HABITS: No alcohol or tobacco use. FAMILY HISTORY: Noncontributory. HISTORY AND PHYSICAL [id number] TESSIE STOLL SOCIAL HISTORY: The patient hopes to return back home and get back to his prior level of functioning. REVIEW OF SYSTEMS: GENERAL: He does complain of some weakness and fatigue. HEENT: Denies cold, cough or congestion. CARDIOVASCULAR: Denies any chest pain. PHYSICAL EXAMINATION: VITAL SIGNS: Stable, afebrile. GENERAL: An elderly gentleman in no acute distress, alert upon exam. HEENT: Normocephalic and atraumatic. Mucosa moist. NECK: Supple with no lymphadenopathy. LUNGS: Clear in upper [place]. HEART: Irregular rate and rhythm. ABDOMEN: Soft, benign, nondistended. Positive bowel sounds times 4. EXTREMITIES: No clubbing, cyanosis or edema. NEUROLOGIC: He does have some diffuse weakness. DIAGNOSTIC DATA: His white count is 16.2, H&H of 15 and 46.9 and platelet count is 194. His sodium is 144, potassium 3.8, BUN and creatinine are 37/1.3 and blood sugar is noted to be 101. 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 The patient has potential to make improvement. We instituted the following multidisciplinary therapies including, but not limited to physical, occupational, respiratory, speech, nutritional services, prosthetics and orthotics. Given his complex medical condition and risk for more complications, rehabilitation services cannot be provided at a low level of care such as [facility] facility. PLAN: 1. Admit to [facility] for inpatient therapy to include the following disciplines: A. Physical therapy to improve gait, all transfer skills and bed mobility to a modified independent level. B. Occupational therapy to improve activities of daily living. C. Case management to help with discharge planning and placement options. D. Nutrition to assist with nutritional needs. E. Rehabilitation nursing to assist in monitoring the patient's underlying medical conditions and to assist with any type of bowel or bladder management. 2. The patient's current medication and medical care will be continued. 3. He will be placed on standard fall precautions. 4. The patient's estimated length of stay is approximately 7-10 days. 5. Discussed this patient during care team staff meeting this week. We will continue appropriate home medications. I will see again in the a.m. Reconsult Pulmonary or Cardiology if necessary and we will discuss his case today at noon with the care team. TRANSINT:[id number] Voice Confirmation ID: [id number] DOCUMENT ID: [id number] FIDELIA notes whether there has been none or any medical/functional change since admission: - No change since preadmission screen. HISTORY AND PHYSICAL [id number] TESSIE STOLL attests patient continues to be appropriate for IRF: - Continues to be appropriate. LELA DYE MD at 0459 CC: [id number] DICTATION DATE: 02/21/21905 SPRAY BOOTH OPERATOR: 02/21/21 1015 ADM IN [place] [id number] [place] [address]
--- NOTE | 2021-02-22 05:00 | NUR ---
QUIET HOURS. NO ACUTE CHANGES IN CONDITION THIS SHIFT. RESTING IN BED WITH NO DISTRESS NOTED. QUALITY ASSURANCE NURSE ON.
[2021-02-22 07:32] VITALS: BP 112/72
--- NOTE | 2021-02-22 08:00 | NUR ---
SHIFT ASSMT COMPLETED.
--- NOTE | 2021-02-22 20:00 | NUR ---
AWAKE AND ALERT. RESTING IN BED WITH RESPIRATIONS UNLABORED. O2/2L ON PER NASAL CANNULA. SINUS TACHYCARDIA AT 108 TRACING ON TELEMETRY. REQUESTED AND SIGNED A BED ALARM WAIVER. INFORMED WE WOULD STILL ASSIST HIM WITH TRANSFERS IF HE NEEDED OR WANTED US TO. HE VOICED UNDERSTANDING. CALL LIGHT IN REACH.
[2021-02-22 20:23] VITALS: BP 114/66
--- NOTE | 2021-02-23 05:18 | NUR ---
QUIET HOURS. NO ACUTE CHANGES IN CONDITION THIS SHIFT. RESTING IN BED WITH NO DISTRESS NOTED. CALL LIGHT IN REACH. SINUS TACH ON TELEMETRY.
[2021-02-23 06:21] LABS: BASOPHILS 0.3 % (0-2); EOSINOPHILS 2.2 % (0-7); HEMATOCRIT 41.8 % (42.0-54.0); HEMOGLOBIN 13.9 g/dL (13.5-17.5); LYMPHOCYTES 5.9 % (15-50); MCH 30.7 pg (26.0-34.0); MCHC 33.3 g/dL (31.0-37.0); MCV 92.2 fL (80.0-100.0); MEAN PLATELET VOLUME 8.5 fL (7.4-10.4); MONOCYTES 9.1 % (2-11); NEUTROPHILS 82.5 % (40-80); PLATELET COUNT 201 10x3/uL (130-400); RBC 4.53 10x6/uL (4.20-6.10); WBC 15.1 10x3/uL (4.8-10.8)
[2021-02-23 06:37] LABS: ALBUMIN 2.5 g/dL (3.4-5.0); ANION GAP 8.9 mmol/L (8-16); BILIRUBIN - TOTAL 0.41 mg/dL (0.2-1.3); CALCIUM 8.5 mg/dL (8.5-10.1); CARBON DIOXIDE 31.2 mmol/L (21.0-32.0); CREATININE - SERUM 1.2 mg/dL (0.6-1.3); POTASSIUM - SERUM 4.1 mmol/L (3.5-5.1); PROTEIN - SERUM 5.3 g/dL (6.4-8.2)
[2021-02-23 07:57] VITALS: BP 117/84
--- NOTE | 2021-02-23 18:50 | NUR ---
BEDSIDE REPORT COMPLETE. RECEIVED PT SITTING UP IN BED. ALERT AND ORIENTED X4. DENIES ANY NEEDS OR PAIN. TELEMETRY ON AND ELECTRODES INTACT. PACER/DEFIB ON LEFT SIDE CHEST. MEPILEX TO BUTTOCKS FOR PROTECTION PER DAYSHIFT ILEANA PRYOR CHANGED AND DATED 02/23/21. BED/CHAIR ALARM WAIVER SIGNED AND IN CHART. CONTINUES ON O2/2L VIA NC. NO DISTRESS NOTED. CALL LIGHT AND WATER WITHIN REACH. FALL PRECAUTIONS IN PLACE. CPOC
[2021-02-23 20:24] VITALS: BP 115/71
--- NOTE | 2021-02-24 02:29 | NUR ---
PT SITTING UP IN BED READING MAGAZINE. DENIES ANY NEEDS OR PAIN. NO DISTRESS NOTED. CONTINUES ON O2/2L VIA NC. CALL LIGHT AND WATER WITHIN REACH.
[2021-02-24 09:26] VITALS: BP 133/82
--- NOTE | 2021-02-24 12:45 | NUR ---
SITTING UP IN BED EATING LUNCH. DENIES NEEDS OR C/O. WEARING OXYGEN 2LNC. C/O FATIGUE AFTER MINIMAL EXERTION. ENCOURAGED TO STAY OFF BOTTOM TO PREVENT SKIN BREAKDOWN. CALL LIGHT IN REACH
--- NOTE | 2021-02-24 18:50 | NUR ---
BEDSIDE REPORT COMPLETE. RECEIVED PT SITTING UP IN W/C WATCHING TV. ALERT AND ORIENTED X4. DENIES ANY NEEDS OR PAIN. CONTINUES ON O2/2L VIA NC. CALL LIGHT AND WATER WITHIN REACH. FALL PRECAUTIONS IN PLACE. CPOC
[2021-02-24 19:00] VITALS: BP 127/85
--- NOTE | 2021-02-25 01:56 | NUR ---
PT LYING IN BED ON RIGHT SIDE EYES CLOSED RESTING. RR EVEN AND UNLABORED. CONTINUES ON O2/2L VIA NC. CALL LIGHT WITHIN REACH
--- NOTE | 2021-02-25 06:28 | NUR ---
PT SITTING UP IN BED READING PAPER. DENIES ANY NEEDS OR PAIN. NO ACUTE CHANGES IN CONDITION THIS SHIFT. CONTINUES ON O2/2L VIA NC. CALL LIGHT AND PERSONAL ITEMS WITHIN REACH. FALL PRECAUTIONS IN PLACE.
[2021-02-25 06:59] VITALS: BP 114/58
[2021-02-25 07:00] VITALS: BP 114/58
--- NOTE | 2021-02-25 13:45 | NUR ---
SITTING UP IN BED READING HIS MAGAZINES. OXYGEN IN PLACE 2LNC. DENIES NEEDS, PAIN OR C/O. CALL LIGHT IN REACH.
--- NOTE | 2021-02-25 18:50 | NUR ---
BEDSIDE REPORT COMPLETE. RECEIVED PT SITTING UP IN W/C. ALERT AND ORIENTED X4. DENIES ANY NEEDS OR PAIN. CONTINUES ON O2/2L VIA NC. TELEMETRY INTACT. LEFT PACER/DEFIB. CALL LIGHT AND WATER WITHIN REACH. FALL PRECAUTIONS IN PLACE. CPOC
[2021-02-25 19:55] VITALS: BP 108/74
--- NOTE | 2021-02-25 23:36 | NUR ---
PT LYING IN BED ON LEFT SIDE EYES CLOSED RESTING. RR EVEN AND UNLABORED. CALL LIGHT WITHIN REACH
--- NOTE | 2021-02-26 02:52 | NUR ---
PT LYING IN BED SUPINE EYES CLOSED RESTING. HOB ELEVATED. NO DISTRESS NOTED. CALL LIGHT WITHIN REACH. KATHERINE ALARM ON.
--- NOTE | 2021-02-26 05:02 | NUR ---
PT SITTING UP IN BED DRINKING COFFEE AND WORKING WORD FIND PUZZLE. DENIES ANY NEEDS OR PAIN. NO ACUTE CHANGES IN CONDITION THIS SHIFT. CONTINUES ON O2/2L VIA NC. CALL LIGHT AND PERSONAL ITEMS WITHIN REACH.
[2021-02-26 07:27] VITALS: BP 129/88
[2021-02-26 07:53] LABS: BASOPHILS 0.2 % (0-2); EOSINOPHILS 1.6 % (0-7); HEMATOCRIT 42.9 % (42.0-54.0); HEMOGLOBIN 14.2 g/dL (13.5-17.5); LYMPHOCYTES 12.2 % (15-50); MCH 30.6 pg (26.0-34.0); MCHC 33.1 g/dL (31.0-37.0); MCV 92.7 fL (80.0-100.0); MEAN PLATELET VOLUME 8.2 fL (7.4-10.4); MONOCYTES 8.2 % (2-11); NEUTROPHILS 77.8 % (40-80); PLATELET COUNT 198 10x3/uL (130-400); RBC 4.63 10x6/uL (4.20-6.10); RDW 15.5 % (11.5-14.5); WBC 15.5 10x3/uL (4.8-10.8)
[2021-02-26 08:10] LABS: CALC OSMOLALITY 284 mosm/kg (275-300); CALCIUM 8.7 mg/dL (8.5-10.1); CARBON DIOXIDE 28.1 mmol/L (21.0-32.0); CHLORIDE - SERUM 106 mmol/L (98-107); GLUCOSE 85 mg/dL (74-106); POTASSIUM - SERUM 4.4 mmol/L (3.5-5.1); SODIUM 140 mmol/L (136-145); UREA NITROGEN 33 mg/dL (7-18); eGFR NON AFRICAN AMERICAN 78 mL/min (90-120)
--- NOTE | 2021-02-26 11:04 | NUR ---
Nutrition Follow-up: Diet: Regular + Usama BID PO intake: ~75% average x last 9 meals. He ate 100% of breakfast this morning. States that his appetite is good. States that he is drinking Usama BID mixed with juice. Last BM: 02/24/21 Wt: 174# (02/21/21) Meds noted: micro-k, lasix, probiotics, prednisone, abx Labs reviewed Skin: stage II PU x 2 to right buttocks and coccyx Recommend continue current diet. Will continue to honor food preferences. Continue Usama BID for nutritionally aided wound healing. RD will re-assess 02/28/21.
--- NOTE | 2021-02-26 12:00 | NUR ---
CLINICAL UPDATES FAXED TO [employer] , AUTH. # [id number] WITH FAX CONFORMATION RECIEVED
--- NOTE | 2021-02-26 16:19 | NUR ---
MEPILEX CHANGED TODAY. NO SKIN BREAKDOWN NOTED BUT BUTTOCKS AND INSIDE OF GLUTEAL CRACK IS RED. ENCOURAGED PT TO STAY OF OF BOTTOM AND TURN OFTEN
[2021-02-26 18:51] VITALS: BP 118/77
--- NOTE | 2021-02-27 00:40 | NUR ---
RESTING WITH EYES CLOSED. CALL LIGHT WITHIN REACH.
--- NOTE | 2021-02-27 04:16 | NUR ---
STILL RESTING QUIETLY WITH EYES CLOSED. CALL LIGHT WITHIN REACH
[2021-02-27 08:00] VITALS: BP 129/69
--- OUTSIDE RECORDS SUMMARY | 2021-02-27 14:54 | XMS Report ---
Demographics + + + | Address | [address] [address] [address] | | | [place] [address] | + + + | Home Phone | | + + + | Preferred Language | Unknown | + + + | Marital Status | | + + + | Tenriism Affiliation | Unknown | + + + | Race | White | + + + | Ethnic Group | Not or | + + + Author + + + | Author | [facility], | | | [facility] | | | [place] | + + + | Organization | [facility], | | | [facility] | | | [place] | + + + | Address | [address] [place] [address] | | | [place] [address] | | | | + + + | Phone | [phone] | + + + Care Team Providers + +------+ + | Care Residence Hall Director Name | Role | Phone | + +------+ + | ANGELA MCCARTHY | 3 | [phone] | + +------+ + | ANGELA MCCARTHY | 4 | [phone] | + +------+ + | TWIN [facility] | 2 | [phone] | | RESPIRATORY | | | + +------+ + Reason for Referral Reason for Visit Congestive heart failure Assessment No assessment recorded. Patient Targets + + + + | Encounter Date | Instructions | Goals | | | | | | | | | + + + + | 02/27/2021 | | | | | | | | | | | + + + + Plan of Treatment + + + + + + + | Reminders | | Order | Submit | Provider | Details | | | | Date | Date | | | | | | | | | | | | | | | | | | | | | | | | | | | | | | | + + + + + + + | | | | | HENRY | | | | | | | ALEXEI | | | | | 1 11:15AM | | DESK MONITOR | | | | | | | | | | | | | | | | | Appointme | Office | | | | | | nts | Visit | | | | | | | | | | | | | | | | | | | | | | | | | | | | | | | | | | | | | | | | | | | | | | | | | | | | | | | | | | | | | + + + + + + + | | None | | | | | | | recorded. | | | | | | | | | | | | | | | | | | | | Lab | | | | | | | | | | | | | | | | | | | | | | | | | | | | | | | | | | | | | | | | | | | | | | | | | | | | | | | | | | | | | | + + + + + + + | | | | | | | | | | | | National | | | | | 1 | 02/27/ | [facility] | | | | | | 1 | Medical | | | | | | | Center, | | | Referral | general | | | 130 | | | | surgeon | | | Medical | | | | referral | | | [address]k, Hot | | | | | | | [place], | | | | | | | [place], | | | | | | | [address], Ph | | | | | | | (501) | | | | | | | [address]75 | | | | | | | | | | | | | | | | | | | | | | | | | | | | | | + + + + + + + | | None | | | | | | | recorded. | | | | | | | | | | | | | | | | | | | | | | | | | | | Procedure | | | | | | | s | | | | | | | | | | | | | | | | | | | | | | | | | | | | | | | | | | | | | | | | | | | | | | | | | | | | | | | | | | | | | | + + + + + + + | | None | | | | | | | recorded. | | | | | | | | | | | | | | | | | | | | | | | | | | | Surgeries | | | | | | | | | | | | | | | | | | | | | | | | | | | | | | | | | | | | | | | | | | | | | | | | | | | | | | | | | | | | | | + + + + + + + | | None | | | | | | | recorded. | | | | | | | | | | | | | | | | | | | | | | | | | | | Imaging | | | | | | | | | | | | | | | | | | | | | | | | | | | | | | | | | | | | | | | | | | | | | | | | | | | | | | | | | | | | | | + + + + + + + Results +--------+--------+--------+--------+--------+--------+--------+--------+ | Date | Name | Descri | Value | Unit | Range | Abnorm | Provid | | | | ption | | | | al | er | | | | | | | | Flag | Detail | | | | | | | | | | | | | | | | | | | | | | | | | | | | | | | | | | | | | | | | | | | | | | | | | | | | | | | +--------+--------+--------+--------+--------+--------+--------+--------+ | 05/13/ | tropon | | 1.186 | NG/mL | 0.000- | high | | | 2021 | in I, | | | | 0.060 | | | | | serum | | | | | | | | | or | | | | | | | | | plasma | | | | | | | | | | | | | | | | | | | | | | | | | | | | tropon | | | | | Nation | | | | in I | | | | | al | | | | serpl- | | | | | Park | | | | mcnc | | | | | Medica | | | | | | | | | l | | | | | | | | | Center | | | | | | | | | | | | | | | | | | | | | | | | | | | | | | | | | | | | | | | | | | | | | | | | | | | | | | | | | | | | | | | | | | | | | | | | | | | | | | | | | | | | | | | | | | | | | | | | | | | | | | | | | | | | | | | | | | | | | | | | | | | | | | | | | | | | | | | 1908 | | | | | | | | | [address] | | | | | | | | | [address], | | | | | | | | | Hot | | | | | | | | | Spring | | | | | | | | | s, [place], | | | | | | | | | | | | | | | | | | [id number]- | | | | | | | | | [address], | | | | | | | | | Ph | | | | | | | | | (501) | | | | | | | | | 321[address]10 | | | | | | | | | 00 | | | | | | | | | | | | | | | | | | | | | | | | | | | | | | | | | | | | | | | | | | | | | | | | | | | | | | | | | | | | | | | | | | | | | | | | | | | | | | | | | | | | | | | | | | | | | | | | | | | | +--------+--------+--------+--------+--------+--------+--------+--------+ | 05/18/ | serum | | 3.17 | NG/mL | 0.00-0 | high | | | 2021 | or | | | | .08 | | | | | plasma | | | | | | | | | | | | | | | | | | procal | | | | | | | | | citoni | | | | | | | | | n | | | | | | | | | measur | serum | | | | | Nation | | | ement | or | | | | | al | | | (mass/ | plasma | | | | | Park | | | volume | | | | | | Medica | | | ) | procal | | | | | l | | | | citoni | | | | | Center | | | | n | | | | | | | | | measur | | | | | | | | | ement | | | | | | | | | (mass/ | | | | | | | | | volume | | | | | | | | | ) | | | | | | | | | | | | | | | | | | | | | | | | | | | | | | | | | | | | | | | | | | | | | | | | | | | | | | | | | | | | | | | | | | | | | | | | | | | | | | | | | | | | | | 1908 | | | | | | | | | [address] | | | | | | | | | [address], | | | | | | | | | Hot | | | | | | | | | Spring | | | | | | | | | s, [place], | | | | | | | | | | | | | | | | | | [address]- | | | | | | | | | [address], | | | | | | | | | Ph | | | | | | | | | (501) | | | | | | | | | 321[address]10 | | | | | | | | | 00 | | | | | | | | | | | | | | | | | | | | | | | | | | | | | | | | | | | | | | | | | | | | | | | | | | | | | | | | | | | | | | | | | | | | | | | | | | | | | | | | | | | | | | | | | | | | | | | | | | | | +--------+--------+--------+--------+--------+--------+--------+--------+ | 05/12/ | cultur | | mixed | | | | | | 2021 | e, | | contam | | | | | | | urine | | inated | | | | | | | | | | | | | | | | | | specim | | | | | | | | | en | | | | | | | | | | | | | | | | | cultur | | | | | Nation | | | | e, | | | | | al | | | | urine | | | | | Park | | | | | | | | | Medica | | | | | | | | | l | | | | | | | | | Center | | | | | | | | | | | | | | | | | | | | | | | | | | | | | | | | | | | | | | | | | | | | | | | | | | | | | | | | | | | | | | | | | | | | | | | | | | | | | | | | | | | | | | | | | | | | | | | | | | | | | | | | | | | | | | | | | | | | | | | | | | | | | | | | | | | | | | | 1908 | | | | | | | | | [address] | | | | | | | | | [address], | | | | | | | | | Hot | | | | | | | | | Spring | | | | | | | | | s, [place], | | | | | | | | | | | | | | | | | | [id number]- | | | | | | | | | [address], | | | | | | | | | Ph | | | | | | | | | (501) | | | | | | | | | 321[address] | | | | | | | | | 00 | | | | | | | | | | | | | | | | | | | | | | | | | | | | | | | | | | | | | | | | | | | | | | | | | | | | | | | | | | | | | | | | | | | | | | | | | | | | | | | | | | | | | | | | | | | | | | | | | | | | +--------+--------+--------+--------+--------+--------+--------+--------+ | | XR, | | | | | | | | | swallo | | | | | | | | | w | | | | | | | | | study | | | | | | | | | | | | | | | | | | | | | | | | | | | | | | | | | | | | | | No | | | | Nation | | | | | observ | | | | al | | | | | ation | | | | Park | | | | | record | | | | Medica | | | | | ed. | | | | l | | | | | | | | | Center | | | | | | | | | | | | | | | | | | (Imagi | | | | | | | | | ng) | | | | | | | | | | | | | | | | | | | | | | | | | | | | | | | | | | | | | | | | | | | | | | | | | | | | | | | | | | | | | | | | | | | | | | | | | | | | | | | | | | | | | | | | | | | | | | | | | | | | | | | | | | | | | | | | | | | | | | | | | | | | | | | | | | | | | | | 1908 | | | | | | | | | [address] | | [address] | | | | | | | | | Hot | | | | | | | | | Spring | | | | | | | | | s | | | | | | | | | Nation | | | | | | | | | al | | | | | | | | | [place], | | | | | | | | | [place], | | | | | | | | | [address], | | | | | | | | | Ph | | | | | | | | | (501) | | | | | | | | | [address] | | | | | | | | | 75 | | | | | | | | | | | | | | | | | | | | | | | | | | | | | | | | | | | | | | | | | | | | | | | | | | | | | | | | | | | | | | | | | | | | | | | | | | | | | | | | | | | | | | | | | | | | | | | | | | | | +--------+--------+--------+--------+--------+--------+--------+--------+ | | XR, | | | | | | | | | chest, | | | | | | | | | 2 | | | | | | | | | view | | | | | | | | | | | | | | | | | | | | | | | | | | | | | | | | | | | | | | No | | | | Nation | | | | | observ | | | | al | | | | | ation | | | | Park | | | | | record | | | | Medica | | | | | ed. | | | | l | | | | | | | | | Center | | | | | | | | | | | | | | | | | | (Imagi | | | | | | | | | ng) | | | | | | | | | | | | | | | | | | | | | | | | | | | | | | | | | | | | | | | | | | | | | | | | | | | | | | | | | | | | | | | | | | | | | | | | | | | | | | | | | | | | | | | | | | | | | | | | | | | | | | | | | | | | | | | | | | | | | | | | | | | | | | | | | | | | | | | 1908 | | | | | | | | | [address] | | | | | | | | | Hot | | | | | | | | | Spring | | | | | | | | | s | | | | | | | | | Nation | | | | | | | | | al | | | | | | | | | [place], | | | | | | | | | [place], | | | | | | | | | [address], | | | | | | | | | Ph | | | | | | | | | (501) | | | | | | | | | 620[address] | | | | | | | | | 75 | | | | | | | | | | | | | | | | | | | | | | | | | | | | | | | | | | | | | | | | | | | | | | | | | | | | | | | | | | | | | | | | | | | | | | | | | | | | | | | | | | | | | | | | | | | | | | | | | | | | +--------+--------+--------+--------+--------+--------+--------+--------+ | | XR, | | | | | | | | | chest, | | | | | | | | | 1 | | | | | | | | | view | | | | | | | | | | | | | | | | | | | | | | | | | | | | | | | | | | | | | | No | | | | Nation | | | | | observ | | | | al | | | | | ation | | | | Park | | | | | record | | | | Medica | | | | | ed. | | | | l | | | | | | | | | Center | | | | | | | | | | | | | | | | | | (Imagi | | | | | | | | | ng) | | | | | | | | | | | | | | | | | | | | | | | | | | | | | | | | | | | | | | | | | | | | | | | | | | | | | | | | | | | | | | | | | | | | | | | | | | | | | | | | | | | | | | | | | | | | | | | | | | | | | | | | | | | | | | | | | | | | | | | | | | | | | | | | | | | | | | | [address] | | | | | | | | | [address] | | | [address] | | | | | | | | | Hot | | | | | | | | | Spring | | | | | | | | | s | | | | | | | | | Nation | | | | | | | | | al | | | | | | | | | [place], | | | | | | | | | [place], | | | | | | | | | [address], | | | | | | | | | Ph | | | | | | | | | (501) | | | | | | | | | 620[address] | | | | | | | | | 75 | | | | | | | | | | | | | | | | | | | | | | | | | | | | | | | | | | | | | | | | | | | | | | | | | | | | | | | | | | | | | | | | | | | | | | | | | | | | | | | | | | | | | | | | | | | | | | | | | | | | +--------+--------+--------+--------+--------+--------+--------+--------+ | | XR, | | | | | | | | | chest, | | | | | | | | | 1 | | | | | | | | | view | | | | | | | | | | | | | | | | | | | | | | | | | | | | | | | | | | | | | | No | | | | Nation | | | | | observ | | | | al | | | | | ation | | | | Park | | | | | record | | | | Medica | | | | | ed. | | | | l | | | | | | | | | Center | | | | | | | | | | | | | | | | | | (Imagi | | | | | | | | | ng) | | | | | | | | | | | | | | | | | | | | | | | | | | | | | | | | | | | | | | | | | | | | | | | | | | | | | | | | | | | | | | | | | | | | | | | | | | | | | | | | | | | | | | | | | | | | | | | | | | | | | | | | | | | | | | | | | | | | | | | | | | | | | | | | | | | | | | | 1908 | | | | | | | | | [address] | | | | | | | | | [address] | | | | | | | | | Hot | | | | | | | | | Spring | | | | | | | | | s | | | | | | | | | Nation | | | | | | | | | al | | | | | | | | | [place], | | | | | | | | | [place], | | | | | | | | | [id number], | | | | | | | | | Ph | | | | | | | | | (501) | | | | | | | | | 620[address] | | | | | | | | | 75 | | | | | | | | | | | | | | | | | | | | | | | | | | | | | | | | | | | | | | | | | | | | | | | | | | | | | | | | | | | | | | | | | | | | | | | | | | | | | | | | | | | | | | | | | | | | | | | | | | | | +--------+--------+--------+--------+--------+--------+--------+--------+ | | - US | | | | | | | | | bilate | | | | | | | | | ral | | | | | | | | | venous | | | | | | | | | | | | | | | | | | dopple | | | | | | | | | r | | | | | | | | | | | No | | | | Nation | | | | | observ | | | | al | | | | | ation | | | | Park | | | | | record | | | | Medica | | | | | ed. | | | | l | | | | | | | | | Center | | | | | | | | | | | | | | | | | | (Imagi | | | | | | | | | ng) | | | | | | | | | | | | | | | | | | | | | | | | | | | | | | | | | | | | | | | | | | | | | | | | | | | | | | | | | | | | | | | | | | | | | | | | | | | | | | | | | | | | | | | | | | | | | | | | | | | | | | | | | | | | | | | | | | | | | | | | | | | | | | | | | | | | | | | [address] | | | | | | | | | [address] | | | | | | | | [address] | | | | | | | | | Hot | | | | | | | | | Spring | | | | | | | | | s | | | | | | | | | Nation | | | | | | | | | al | | | | | | | | | [place], | | | | | | | | | [place], | | | | | | | | | [id number], | | | | | | | | | Ph | | | | | | | | | (501) | | | | | | | | | 620[address] | | | | | | | | | 75 | | | | | | | | | | | | | | | | | | | | | | | | | | | | | | | | | | | | | | | | | | | | | | | | | | | | | | | | | | | | | | | | | | | | | | | | | | | | | | | | | | | | | | | | | | | | | | | | | | | | +--------+--------+--------+--------+--------+--------+--------+--------+ | | XR, | | | | | | | | | chest, | | | | | | | | | 1 | | | | | | | | | view | | | | | | | | | | | | | | | | | | | | | | | | | | | | | | | | | | | | | | No | | | | Nation | | | | | observ | | | | al | | | | | ation | | | | Park | | | | | record | | | | Medica | | | | | ed. | | | | l | | | | | | | | | Center | | | | | | | | | | | | | | | | | | (Imagi | | | | | | | | | ng) | | | | | | | | | | | | | | | | | | | | | | | | | | | | | | | | | | | | | | | | | | | | | | | | | | | | | | | | | | | | | | | | | | | | | | | | | | | | | | | | | | | | | | | | | | | | | | | | | | | | | | | | | | | | | | | | | | | | | | | | | | | | | | | | | | | | | | | [address] | | | | | | | | | [address] | | | | | | | | | [address] | | | | | | | | | Hot | | | | | | | | | Spring | | | | | | | | | s | | | | | | | | | Nation | | | | | | | | | al | | | | | | | | | [place], | | | | | | | | | [place], | | | | | | | | | [address], | | | | | | | | | Ph | | | | | | | | | (501) | | | | | | | | | 620[address] | | | | | | | | | 75 | | | | | | | | | | | | | | | | | | | | | | | | | | | | | | | | | | | | | | | | | | | | | | | | | | | | | | | | | | | | | | | | | | | | | | | | | | | | | | | | | | | | | | | | | | | | | | | | | | | | +--------+--------+--------+--------+--------+--------+--------+--------+ | | XR, | | | | | | | | | chest, | | | | | | | | | 1 | | | | | | | | | view | | | | | | | | | | | | | | | | | | | | | | | | | | | | | | | | | | | | | | No | | | | Nation | | | | | observ | | | | al | | | | | ation | | | | Park | | | | | record | | | | Medica | | | | | ed. | | | | l | | | | | | | | | Center | | | | | | | | | | | | | | | | | | (Imagi | | | | | | | | | ng) | | | | | | | | | | | | | | | | | | | | | | | | | | | | | | | | | | | | | | | | | | | | | | | | | | | | | | | | | | | | | | | | | | | | | | | | | | | | | | | | | | | | | | | | | | | | | | | | | | | | | | | | | | | | | | | | | | | | | | | | | | | | | | | | | | | | | | | 1910 | | | | | | | | | [address] | | | | | | | | | [address] | | | | | | | | | Hot | | | | | | | | | Spring | | | | | | | | | s | | | | | | | | | Nation | | | | | | | | | al | | | | | | | | | Park, | | | | | | | | | [place], | | | | | | | | | [address], | | | | | | | | | Ph | | | | | | | | | (501) | | | | | | | | | [address] | | | | | | | | | 75 | | | | | | | | | | | | | | | | | | | | | | | | | | | | | | | | | | | | | | | | | | | | | | | | | | | | | | | | | | | | | | | | | | | | | | | | | | | | | | | | | | | | | | | | | | | | | | | | | | | | +--------+--------+--------+--------+--------+--------+--------+--------+ | | XR, | | | | | | | | | chest, | | | | | | | | | 1 | | | | | | | | | view | | | | | | | | | | | | | | | | | | | | | | | | | | | | | | | | | | | | | | No | | | | Nation | | | | | observ | | | | al | | | | | ation | | | | Park | | | | | record | | | | Medica | | | | | ed. | | | | l | | | | | | | | | Center | | | | | | | | | | | | | | | | | | (Imagi | | | | | | | | | ng) | | | | | | | | | | | | | | | | | | | | | | | | | | | | | | | | | | | | | | | | | | | | | | | | | | | | | | | | | | | | | | | | | | | | | | | | | | | | | | | | | | | | | | | | | | | | | | | | | | | | | | | | | | | | | | | | | | | | | | | | | | | | | | | | | | | | | | | [address] | | | | | | | | | [address] | | | | | | | | | [address] | | | | | | | | | Hot | | | | | | | | | Spring | | | | | | | | | s | | | | | | | | | Nation | | | | | | | | | al | | | | | | | | | [place], | | | | | | | | | [place], | | | | | | | | | [address], | | | | | | | | | Ph | | | | | | | | | (501) | | | | | | | | | [address] | | | | | | | | | 75 | | | | | | | | | | | | | | | | | | | | | | | | | | | | | | | | | | | | | | | | | | | | | | | | | | | | | | | | | | | | | | | | | | | | | | | | | | | | | | | | | | | | | | | | | | | | | | | | | | | | +--------+--------+--------+--------+--------+--------+--------+--------+ | | XR, | | | | | | | | | chest, | | | | | | | | | 1 | | | | | | | | | view | | | | | | | | | | | | | | | | | | | | | | | | | | | | | | | | | | | | | | No | | | | Nation | | | | | observ | | | | al | | | | | ation | | | | Park | | | | | record | | | | Medica | | | | | ed. | | | | l | | | | | | | | | Center | | | | | | | | | | | | | | | | | | (Imagi | | | | | | | | | ng) | | | | | | | | | | | | | | | | | | | | | | | | | | | | | | | | | | | | | | | | | | | | | | | | | | | | | | | | | | | | | | | | | | | | | | | | | | | | | | | | | | | | | | | | | | | | | | | | | | | | | | | | | | | | | | | | | | | | | | | | | | | | | | | | | | | | | | | 1910 | | | | | | | | | [address] | | | | | | | | | [address] | | | | | | | | | Hot | | | | | | | | | Spring | | | | | | | | | s | | | | | | | | | Nation | | | | | | | | | al | | | | | | | | | [place], | | | | | | | | | [place], | | | | | | | | | [address], | | | | | | | | | Ph | | | | | | | | | (501) | | | | | | | | | [address] | | | | | | | | | 75 | | | | | | | | | | | | | | | | | | | | | | | | | | | | | | | | | | | | | | | | | | | | | | | | | | | | | | | | | | | | | | | | | | | | | | | | | | | | | | | | | | | | | | | | | | | | | | | | | | | | +--------+--------+--------+--------+--------+--------+--------+--------+ Problems +---------+---------+---------+---------+---------+---------+---------+ | Name | Status | Last | Onset | Resolut | Lateral | Problem | | | | Modifie | Date | ion | ity | Type | | | | d Date | | Date | | | | | | | | | | | | | | | | | | | | | | | | | | | | | | | | | | | | | | | | | | | +---------+---------+---------+---------+---------+---------+---------+ | Hyperte | Active | | | | | | | nsive | | 019 | 019 | | | | | disorde | | | | | | | | r | | | | | | | | | | | | | | | | | | | | | | | | | | | | | | | | | | | | | | | | | | | | | | | +---------+---------+---------+---------+---------+---------+---------+ | 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 | | | | | infarct | | | | | | | | ion | | | | | | | | | | | | | | | | | | | | | | | | | | | | | | | | | | | | | | | | | | | | | | | +---------+---------+---------+---------+---------+---------+---------+ | Chronic | Active | | | | | | | | | 021 | 021 | | | | | systoli | | | | | | | | c heart | | | | | | | | | | | | | | | | failure | | | | | | | | | | | | | | | | | | | | | | | | | | | | | | | | | | | | | | | | | | | | | | | | | | | | | | | +---------+---------+---------+---------+---------+---------+---------+ | Interst | Active | | | | | | | itial | | 021 | 021 | | | | | lung | | | | | | | | disease | | | | | | | | | | | | | | | | | | | | | | | | | | | | | | | | | | | | | | | | | | | | | | | | | | | | | | | +---------+---------+---------+---------+---------+---------+---------+ | Fatigue | Active | | | | | | | | | 019 | 019 | | | | | | | | | | | | | | | | | | | | | | | | | | | | | | | | | | | | | | | | | | | | +---------+---------+---------+---------+---------+---------+---------+ | Dyspnea | Active | | | | | | | | | 019 | 019 | | | | | | | | | | | | | | | | | | | | | | | | | | | | | | | | | | | | | | | | | | | | +---------+---------+---------+---------+---------+---------+---------+ Procedures Surgical History + + + + + | Date | Name | Laterality | Status | | | | | | | | | | | | | | | | + + + + + | 04/05/2013 | | | completed | | | | | | | | | | | | | insertion of | | | | | arterial stent | | | | | | | | | | | | | | | | | | | | | | | | | | | | + + + + + | 03/06/1995 | | | completed | | | | | | | | | | | | | angioplasty of | | | | | blood vessel | | | | | | | | | | | | | | | | | | | | | | | | | | | | + + + + + Imaging Results None recorded. Medical Equipment None Reported. Allergies No known drug allergies - True Medications + + + + + + + | Name | Sig | Start | Stop Date | Status | Note | | | | Date | | | | | | | | | | | | | | | | | | | | | | | | | | | | | | | | + + + + + + + | | | | | active | | | | | | | | | | | | | | | | | | | | | | | | | USE 1 | | | | | | | VIAL IN | | | | | | | NEBULIZER | | | | | | albuterol | EVERY 6 | | | | | | sulfate | HOURS | | | | | | 0.63 mg/3 | NEEDED | | | | | | mL | FOR | | | | | | solution | WHEEZING | | | | | | for | | | | | | | nebulizat | | | | | | | ion | | | | | | | | | | | | | | | | | | | | | | | | | | | | | | | | | | | | | | | | | | | | | | | | | | | | | | | | | | | | | | | | | | | | | | | | | | | | + + + + + + + | | | | | active | | | | | | | | | | | | | | | | | | | | | | | | | TAKE | | | | | | | 4 TABLETS | | | | | | | BY MOUTH | | | | | | prednison | ONCE | | | | | | e 10 mg | DAILY FOR | | | | | | tablet | 3 DAYS | | | | | | | THEN 3 | | | | | | | ONCE | | | | | | | DAILY FOR | | | | | | | 3 DAYS | | | | | | | THEN 2 | | | | | | | ONCE | | | | | | | DAILY FOR | | | | | | | 3 DAYS | | | | | | | THEN 1 | | | | | | | ONCE | | | | | | | DAILY FOR | | | | | | | 3 DAYS | | | | | | | | | | | | | | | | | | | | | | | | | | | | | | | | | | | | | | | | | | | | | | | | | | | | | | | | | | | | | + + + + + + + | | | | | active | | | | | | | | | | | | | | | | | | | | | | | | | USE 1 | | | | | | | VIAL IN | | | | | | | NEBULIZER | | | | | | ipratropi | THREE | | | | | | um 0.5 | TIMES | | | | | | mg-albute | DAILY | | | | | | rol 3 mg | | | | | | | (2.5 mg | | | | | | | base)/3 | | | | | | | mL | | | | | | | nebulizat | | | | | | | ion soln | | | | | | | | | | | | | | | | | | | | | | | | | | | | | | | | | | | | | | | | | | | | | | | | | | | | | | | | | | | | | | | | | | | | | | | | | | | | + + + + + + + | | | | | completed | | | | | | | | | | | | | 10/07/201 | | | | | | | 9 | | | | | | | | | | | | Inhale 1 | | | | | | | puff | | | | | | Advair | twice a | | | | | | Diskus | day by | | | | | | 100 | inhalatio | | | | | | mcg-50 | n route. | | | | | | mcg/dose | | | | | | | powder | | | | | | | for | | | | | | | inhalatio | | | | | | | n | | | | | | | | | | | | | | | | | | | | | | | | | | | | | | | | | | | | | | | | | | | | | | | | | | | | | | | | | | | | | | | | | | | | | | | | | | | | + + + + + + + | | | | | active | | | | | | | | | | | | | | | | | | | | | | | | | | | | | | | | | | | | | | | | | | | | | doxycycli | | | | | | | ne | | | | | | | monohydra | | | | | | | te 100 mg | | | | | | | tablet | | | | | | | | | | | | | | | | | | | | | | | | | | | | | | | | | | | | | | | | | | | | | | | | | | | | | | | | | | | | | | | | | | | | | | | | | | | | + + + + + + + | | | | | active | | | | | | | | | | | | | | | | | | | | | | | | | TAKE | | | | | | | 1 TABLET | | | | | | | BY MOUTH | | | | | | carvedilo | TWICE | | | | | | l 3.125 | DAILY | | | | | | mg tablet | | | | | | | | | | | | | | | | | | | | | | | | | | | | | | | | | | | | | | | | | | | | | | | | | | | | | | | | | | | | | | | | | | | | | | | | | | | | + + + + + + + | | | | | active | | | | | | | | | | | | | | | | | | | | | | | | | TAKE | | | | | | | 1 TABLET | | | | | | | BY MOUTH | | | | | | alprazola | ONCE | | | | | | m 0.25 mg | DAILY | | | | | | tablet | NEEDED | | | | | | | FOR | | | | | | | ANXIETY | | | | | | | | | | | | | | | | | | | | | | | | | | | | | | | | | | | | | | | | | | | | | | | | | | | | | | | | | | | | | + + + + + + + | | | | | active | | | | | | | | | | | | | | | | | | | | | | | | | TAKE | | | | | | | 1 CAPSULE | | | | | | | BY MOUTH | | | | | | cephalexi | THREE | | | | | | n 500 mg | TIMES | | | | | | capsule | DAILY FOR | | | | | | | 7 DAYS | | | | | | | | | | | | | | | | | | | | | | | | | | | | | | | | | | | | | | | | | | | | | | | | | | | | | | | | | | | | | | | | | | | | + + + + + + + | | | | | active | | | | | | | | | | | | | | | | | | | | | | | | | TAKE | | | | | | | 1 TABLET | | | | | | | BY MOUTH | | | | | | pantopraz | ONCE | | | | | | ole 40 mg | DAILY | | | | | | | | | | | | | tablet,de | | | | | | | layed | | | | | | | release | | | | | | | | | | | | | | | | | | | | | | | | | | | | | | | | | | | | | | | | | | | | | | | | | | | | | | | | | | | | | | | | | | | | | | | | | | | | + + + + + + + | | | | | active | | | | | | | | | | | | | | | | | | | | | | | | | USE 1 | | | | | | | VIAL IN | | | | | | | NEBULIZER | | | | | | budesonid | TWICE | | | | | | e 0.5 | DAILY | | | | | | mg/2 mL | | | | | | | suspensio | | | | | | | n for | | | | | | | nebulizat | | | | | | | ion | | | | | | | | | | | | | | | | | | | | | | | | | | | | | | | | | | | | | | | | | | | | | | | | | | | | | | | | | | | | | | | | | | | | | | | | | | | | + + + + + + + | | | | | active | | | | | | | | | | | | | | | | | | | | | | | | | Take | | | | | | | 1 tablet | | | | | | | every day | | | | | | Longs | by oral | | | | | | Adult Low | route. | | | | | | Strength | | | | | | | ASA 81 | | | | | | | mg | | | | | | | tablet,de | | | | | | | layed | | | | | | | release | | | | | | | | | | | | | | | | | | | | | | | | | | | | | | | | | | | | | | | | | | | | | | | | | | | | | | | | | | | | | | | | | | | | | | | | | | | | + + + + + + + | | | | | active | | | | | | | | | | | | | | | | | | | | | | | | | TAKE | | | | | | | 1 TABLET | | | | | | | BY MOUTH | | | | | | lisinopri | ONCE | | | | | | l 5 mg | DAILY | | | | | | tablet | | | | | | | | | | | | | | | | | | | | | | | | | | | | | | | | | | | | | | | | | | | | | | | | | | | | | | | | | | | | | | | | | | | | | | | | | | | | + + + + + + + | | | | | active | | | | | | | | | | | | | | | | | | | | | | | | | | | | | | | | INHALE 2 | | | | | | | PUFFS BY | | | | | | albuterol | MOUTH | | | | | | sulfate | EVERY 6 | | | | | | HFA 90 | HOURS | | | | | | mcg/actua | NEEDED | | | | | | tion | FOR | | | | | | aerosol | SHORTNESS | | | | | | inhaler | OF | | | | | | | BREATH | | | | | | | FOR UP TO | | | | | | | 30 DAYS | | | | | | | | | | | | | | | | | | | | | | | | | | | | | | | | | | | | | | | | | | | | | | | | | | | | | | | | | | | | | + + + + + + + | | | | | active | | | | | | | | | | | | | | | | | | | | | | | | | | | | | | | | INIHALE 3 | | | | | | | ML BY | | | | | | acetylcys | NEBULIZER | | | | | | teine 200 | 3 TIMES | | | | | | mg/mL | DAILY | | | | | | (20 %) | | | | | | | intraveno | | | | | | | us | | | | | | | solution | | | | | | | | | | | | | | | | | | | | | | | | | | | | | | | | | | | | | | | | | | | | | | | | | | | | | | | | | | | | | | | | | | | | | | | | | | | | + + + + + + + | | | | | active | | | | | | | | | | | | | | | | | | | | | | | | | 25mg | | | | | | | bid | | | | | | | | | | | | | metoprolo | | | | | | | l | | | | | | | succinate | | | | | | | | | | | | | | | | | | | | | | | | | | | | | | | | | | | | | | | | | | | | | | | | | | | | | | | | | | | | | | | | | | | | | | | | | | | | + + + + + + + | | | | | active | | | | | | | | | | | | 03/29/202 | | | | | | | 1 | | | | | | | | | | | | | Inhale 2 | | | | | | | mL twice | | | | | | Brovana | a day by | | | | | | 15 mcg/2 | inhalatio | | | | | | mL | n route | | | | | | solution | for 30 | | | | | | for | days. | | | | | | nebulizat | | | | | | | ion | | | | | | | | | | | | | | | | | | | | | | | | | | | | | | | | | | | | | | | | | | | | | | | | | | | | | | | | | | | | | | | | | | | | | | | | | | | | + + + + + + + | | | | | active | | | | | | | | | | | | //201 | | | | | | | 9 | | | | | | | | | | | | | Inhale 2 | | | | | | | puffs | | | | | | Symbicort | twice a | | | | | | 160 | day by | | | | | | mcg-4.5 | inhalatio | | | | | | mcg/actua | n route. | | | | | | tion HFA | | | | | | | aerosol | | | | | | | inhaler | | | | | | | | | | | | | | | | | | | | | | | | | | | | | | | | | | | | | | | | | | | | | | | | | | | | | | | | | | | | | | | | | | | | | | | | | | | | + + + + + + + | | | | | active | | | | | | | | | | | | | | | | | | | | | | | | | TAKE | | | | | | | 1 TABLET | | | | | | | BY MOUTH | | | | | | Entresto | TWICE | | | | | | 24 mg-26 | DAILY | | | | | | mg tablet | | | | | | | | | | | | | | | | | | | | | | | | | | | | | | | | | | | | | | | | | | | | | | | | | | | | | | | | | | | | | | | | | | | | | | | | | | | | + + + + + + + History of Present Illness None recorded. Physical Exam + + + | | | | | | | | | | | | + + + | | None recorded. | | Notes: | | | | | | | | + + + Review of Systems None recorded. Vitals None Recorded Social History + + + | | Former Smoker (Formerly) | | Smoking Status | | | | | | | | + + + | Sex | Unknown | | | | + + + Functional Status None recorded. Mental Status None recorded. Family History + + + + + + + | Relations | Descripti | Onset Age | of | Resolved | Notes | | hip | on | | this Age | Age | | | | | | | | | | | | | | | | | | | | | | | | | | | | | | + + + + + + + | Mother | Heart | | | | | | | disease | | | | | | | | | | | | | | | | | | | | | | | | | | | | | | | | | + + + + + + + | Father | Malignant | | | | | | | tumor of | | | | | | | lung | | | | | | | | | | | | | | | | | | | | | | | | | | | | | | | | | + + + + + + + Medical History + + + | Condition | Response | | | | + + + | High Blood Pressure | Y | | | | + + + | Hypertension | Y | | | | + + + | Coronary Artery Disease | Y | | | | + + + | Allergic Rhinitis | Y | | | | + + + | Heart Disease | Y | | | | + + + Immunizations None recorded. Past Encounters None Reported. Goals Section + + + + + + + | Goal | Descripti | Status | Start | Updated | Updated | | | on | | Date | by | on | | | | | | | | | | | | | | | | | | | | | | | | | | | | | + + + + + + + + + | None Recorded | + + Health Concerns Section + + | Related Observation | + + | None Recorded | + + + + + + + | Concern | Status | Updated by | Updated on | | | | | | | | | | | | | | | | + + + + + | None Recorded | | | | | | | | | | | | | | | | | | | + + + + +"
[2021-02-27 20:16] VITALS: BP 124/76
--- NOTE | 2021-02-27 20:33 | NUR ---
AWAKE AND ALERT. RESTING IN BED WITH O2/2L ON PER NASAL CANNULA. NO DISTRESS NOTED. CALL LIGHT IN REACH.
--- NOTE | 2021-02-28 05:28 | NUR ---
QUIET HOURS. NO ACUTE CHANGES IN CONDITION THIS SHIFT. RESTING IN BED WITH NO DISTRESS NOTED.
[2021-02-28 07:57] VITALS: BP 139/64
--- NOTE | 2021-02-28 08:00 | NUR ---
PATIENT IS ALERT/ORIENT. SITTING UP IN BED TO EAT BREAKFAST. BED ALARM ON. CALL LIGHT WITHIN REACH. VOICES NO NEEDS. WILL CONTINUE WITH PLAN OF CARE
--- NOTE | 2021-02-28 10:10 | NUR ---
PATIENT IN REHAB ROOM. WORKING WITH PHYSICAL THERPAIST. DENIES ANY PAIN/DISC AT THIS TIME.
--- NOTE | 2021-02-28 12:00 | NUR ---
I have reviewed this patient and I concur with the Shift Assessment completed by the Licensed Practical Nurse today this shift.
--- NOTE | 2021-02-28 13:42 | NUR ---
CARE TEAM MEETING: PATIENT DAUGHTER ATTENDED THE MEETING. HER QUESTIONS AND CONCERNS WERE ADDRESSED.TENATIVE DC DATE IS 03/02/21. A WHEELCHAIR WILL BE ORDERED FOR PATIENT AT DISCHARGE. WILL CONTINUE TO FOLLOW WITH PATIENT.
--- NOTE | 2021-02-28 14:11 | NUR ---
Nutrition Re-Assessment Diet: Cardiac + Usama BID PO intake: 50-75% x last 9 meals. Patient states "I eat what I like" when asked about how his appetite is. States that he continues to drink Usama BID. He would like strawberry Ensure added to meal trays. Last BM: 02/24/21 Wt: 174# (02/21/21) Meds noted: lasix, micro-k, probiotics, prednisone, abx Labs reviewed Skin: stage II PU x 2 to buttocks/coccyx Estimated nutrition needs: 1975-2350cal (25-30kcal/kg Act), 79-95gms protein (1-1.2gms/kg), 1975-2350mL fluid (or per MD) Nutrition diagnosis: Inadequate energy intake r/t inadequate oral intake AEB PO Intake <75% average. Nutrition goals: -PO intake will increase to =/>75% meals -Meet fluid needs -Stable weight DHS -Improved skin integrity Recommendations/Interventions: -Recommend continue current diet. Will continue to honor food preferences within diet restrictions. -Continue Usama BID for nutritionally aided wound healing. -Will add strawberry Ensure TID per patient request. -RD will follow-up within 7 days.
--- NOTE | 2021-02-28 15:04 | NUR ---
PATIENT HELPED TO BATHROOM. MIN ASST FROM WHEELCHAIR ONTO TOILET.
--- NOTE | 2021-02-28 18:50 | NUR ---
BEDSIDE REPORT COMPLETE. RECEIVED PT SITTING UP IN BED. ALERT AND ORIENTED X4. DENIES ANY NEEDS OR PAIN. NO DISTRESS NOTED. CONTINUES ON O2/2L VIA NC. SHORTNESS OF BREATH WITH ACTIVITY. TELEMETRY ON. CALL LIGHT AND WATER WITHIN REACH. FALL PRECAUTIONS IN PLACE. CPOC
[2021-02-28 19:55] VITALS: BP 109/72
--- NOTE | 2021-03-01 01:31 | NUR ---
PT LYING IN BED ON LEFT SIDE EYES CLOSED RESTING. RR EVEN AND UNLABORED. CALL LIGHT WITHIN REACH. CPOC
--- NOTE | 2021-03-01 05:56 | NUR ---
PT LYING IN BED AWAKE. DENIES ANY NEEDS OR PAIN. NO DISTRESS NOTED. NO ACUTE CHANGES IN CONDITION THIS SHIFT. CALL LIGHT AND WATER WITHIN REACH.
[2021-03-01 07:24] VITALS: BP 115/57
--- NOTE | 2021-03-01 07:27 | NUR ---
PT RESTING IN BED WITH EYES OPEN CALL LIGHT IN REACH NO PROBLEMS WILL MONITER
--- NOTE | 2021-03-01 18:38 | NUR ---
PT RESTING IN BED WITH EYES OPEN CALL LIGHT IN REACH NO PROBLEMS WILL MONITERS
--- NOTE | 2021-03-01 18:50 | NUR ---
BEDSIDE REPORT COMPLETE. RECEIVED PT SITTING UP IN BED. ALERT AND ORIENTED X4. PT APPEARS TO BE DOWN TONIGHT PT STATES HE IS UPSET D/T NOT MAKING ANY PROGRESS IN THERAPY. PT DENIES ANY NEEDS OR PAIN. NO DISTRESS NOTED. CONTINUES ON O2/2L VIA NC. TELEMETRY INTACT. CALL LIGHT WITHIN REACH. CPOC
[2021-03-01 20:02] VITALS: BP 104/76
--- NOTE | 2021-03-02 01:00 | NUR ---
PT LYING IN BED ON RIGHT SIDE EYES CLOSED RESTING. RR EVEN AND UNLABORED. CALL LIGHT WITHIN REACH
--- NOTE | 2021-03-02 04:46 | NUR ---
PT LYING IN BED ON LEFT SIDE EYES CLOSED RESTING. NO ACUTE CHANGES IN CONDITION THIS SHIFT. CONTINUES ON O2/2L VIA NC. NO DISTRESS NOTED. CALL LIGHT WITHIN REACH
[2021-03-02 06:56] LABS: BASOPHILS 0.5 % (0-2); EOSINOPHILS 1.3 % (0-7); HEMATOCRIT 40.2 % (42.0-54.0); HEMOGLOBIN 13.6 g/dL (13.5-17.5); LYMPHOCYTES 10.3 % (15-50); MCHC 33.7 g/dL (31.0-37.0); MEAN PLATELET VOLUME 8.1 fL (7.4-10.4); MONOCYTES 7.2 % (2-11); NEUTROPHILS 80.7 % (40-80); PLATELET COUNT 163 10x3/uL (130-400); RBC 4.37 10x6/uL (4.20-6.10); RDW 15.1 % (11.5-14.5); WBC 10.8 10x3/uL (4.8-10.8)
--- NOTE | 2021-03-02 07:32 | NUR ---
RESTING IN BED, NO DISTRESS NOTED, ALERT AND O, TO DC HOME TODAY, CONT TO MONITOR
[2021-03-02 08:26] LABS: ANION GAP 6.3 mmol/L (8-16); CALCIUM 8.7 mg/dL (8.5-10.1); CARBON DIOXIDE 33.4 mmol/L (21.0-32.0); CREATININE - SERUM 1.2 mg/dL (0.6-1.3); POTASSIUM - SERUM 3.7 mmol/L (3.5-5.1)
--- NOTE | 2021-03-02 09:30 | NUR ---
PATIENT DISCHARGING HOME TODAY WITH FAMILY. [facility] WILL PROVIDE [facility] AT HOME.[facility] HAS DELIVERED A WHEELCHAIR TO PATIENT. ANGELA MCCARTHY APRN WILL CALL PATIENT WITH AN APPOINTMENT. DR. DOUGLAS/HENRY 03/26/21 @ 11:15. AFIA ISGNED, IMM SERVED AND EXPLAINED, ONE GIVEN TO PATIENT AND ONE FILED IN CHART. NO COMPARE DATA REVIEWED PER PATIENT REQUEST. DISCHARGE INSTRUCTIONS FAXED TO PCP, PENDING SALE TO [facility] , AUTH. # [id number] AND REVIEWED WITH PATIENT AND DAUGHTER.
--- NOTE | 2021-03-02 12:25 | NUR ---
REVIEWED DC PAPERS WITH PT AND DAUGHTER, VOICED NO CONCERNS, TAKEN TO PRIVATE VEHICLE PER W/C, URI WELL
== END 2021-03-02 12:26 | disposition home health service (06) | DRG 91 ==
LOC: D.REHAB 14:30
PROVIDERS: ADMIT Emergency Medicine; ATTEND Emergency Medicine
DX: G72.89 Other specified myopathies (principal); J96.00 Acute respiratory failure, unspecified whether with hypoxia or hypercapnia; J18.9 Pneumonia, unspecified organism; I21.A1 Myocardial infarction type 2; I50.20 Unspecified systolic (congestive) heart failure; E87.2 Acidosis; J81.1 Chronic pulmonary edema; N17.9 Acute kidney failure, unspecified; I13.0 Hypertensive heart and chronic kidney disease with heart failure and stage 1 through stage 4 chronic kidney disease, or unspecified chronic kidney disease; I48.91 Unspecified atrial fibrillation; I25.10 Atherosclerotic heart disease of native coronary artery without angina pectoris; J44.9 Chronic obstructive pulmonary disease, unspecified; R26.2 Difficulty in walking, not elsewhere classified; E78.5 Hyperlipidemia, unspecified; E87.8 Other disorders of electrolyte and fluid balance, not elsewhere classified; R74.01 Elevation of levels of liver transaminase levels; Z95.0 Presence of cardiac pacemaker; N18.9 Chronic kidney disease, unspecified; I50.9 Heart failure, unspecified; R53.83 Other fatigue; I89.1 Lymphangitis